=== PATIENT | female | born 1945 | race Asian ===

== ENCOUNTER → 2021-04-07 09:05 | Outpatient (CLI) | payer OTHER, SELFPAY ==
[2021-04-07 10:33] LABS: Appearance Urine UA CLEAR; Bilirubin Urine UA NEGATIVE (NEGATIVE); Color Urine UA YELLOW; Glucose Urine UA NEGATIVE (Negative); Ketones Urine UA NEGATIVE (NEGATIVE); Leukocyte Esterase Urine UA 2+ (NEGATIVE); Nitrite Urine UA NEGATIVE (Negative); Occult Blood Urine UA 2+ (Negative); Protein Urine UA TRACE (Negative); Specific Gravity Urine UA >=1.030 (1.000-1.035); Urobilinogen Urine UA 0.2 E.U./dL (0.2)
[2021-04-07 10:38] LABS: BUN Creatinine Ratio 28.8 (6-22); Blood Urea Nitrogen 23 mg/dL (7-17); Calcium 9.7 mg/dL (8.4-10.2); Carbon Dioxide 26 mmol/L (22-32); Chloride 107 mmol/L (98-107); Estimated Glomerular Filt Rate > 60.0 mL/min (>60); Glucose 138 mg/dL (80-110); HEMOLYSIS 25 (0-50); Potassium 4.2 mmol/L (3.4-5.1); Sodium 140 mmol/L (137-145)
[2021-04-07 10:45] LABS: Bacteria Urine None Seen; Culture Indicated Urine Specimen Cultured; Mucus Urine 1+ (Negative); RBC Urine 1-5/HPF (0-5/HPF); Squamous Epithelial Cell Urine 1-5 /HPF (0-5/HPF); Transitional Epi Cells Urine 0-1/HPF (0-5/HPF); WBC Urine 1-5/HPF (0-5/HPF)
[2021-04-07 11:11] LABS: Creatinine Urine Random 237.7 mg/dL
[2021-04-07 11:14] LABS: Microalbumi Creatinin Ratio Ur 17.6 ug/mg CR (<30); Microalbumin Urine Random 4.2 mg/dL (0-1.6)
== END ==
PROVIDERS: PCP Registered Nurse Diabetes Educator; Referring Provider Registered Nurse Diabetes Educator; Visit Provider Registered Nurse Diabetes Educator
DX: R94.4 Abnormal results of kidney function studies (principal)
CPT/HCPCS: 36415; 80048; 81001; 82043; 82570; 87086

== ENCOUNTER → 2021-04-13 13:42 | Outpatient (CLI) | payer OTHER, SELFPAY ==
[2021-04-13 14:01] LABS: Appearance Urine UA CLEAR; Bilirubin Urine UA NEGATIVE (NEGATIVE); Color Urine UA YELLOW; Glucose Urine UA NEGATIVE (Negative); Ketones Urine UA NEGATIVE (NEGATIVE); Leukocyte Esterase Urine UA NEGATIVE (NEGATIVE); Nitrite Urine UA NEGATIVE (Negative); Occult Blood Urine UA TRACE-INTACT (Negative); Protein Urine UA NEGATIVE (Negative); Specific Gravity Urine UA 1.015 (1.000-1.035); Urobilinogen Urine UA 0.2 E.U./dL (0.2)
[2021-04-13 14:06] LABS: Bacteria Urine None Seen; Culture Indicated Urine Cult Not Indicated; RBC Urine None Seen (0-5/HPF); Urine Comments Microscopic Normal; WBC Urine None Seen (0-5/HPF)
== END ==
PROVIDERS: PCP Registered Nurse Diabetes Educator; Referring Provider Registered Nurse Diabetes Educator; Visit Provider Registered Nurse Diabetes Educator
DX: R82.71 Bacteriuria (principal)
CPT/HCPCS: 81001

== ENCOUNTER → 2021-05-03 10:19 | Outpatient (CLI) | payer OTHER, SELFPAY ==
--- NOTE | 2021-05-03 10:21 | DI.RAD.S_ITS ---
PROCEDURE: XR KNEE LT 3V INDICATIONS: eval L knee pain TECHNIQUE: 3 views of the knee were acquired. COMPARISON: None. FINDINGS: Bones: No fractures or dislocations. No suspicious bony lesions. Mild to moderate tricompartmental osteoarthritic degenerative changes. Soft tissues: No joint effusion. No suspicious soft tissue calcifications. IMPRESSION: [id number] tricompartmental osteoarthritis. Dictated by: Marnie Dumont MD, PhD on 05/03/2021 at 17:12 Approved by: Marnie Dumont MD, PhD on 05/03/2021 at 17:13
--- NOTE | 2021-05-03 10:21 | DI.RAD.S_ITS ---
PROCEDURE: XR WRIST RT MIN 3V INDICATIONS: eval R wrist pain TECHNIQUE: 4 views of the wrist were acquired. COMPARISON: None. FINDINGS: Bones: There is an ossification adjacent to the radial styloid. No suspicious bony lesions. Degenerative radiocarpal narrowing is present. Scaphoid view: No visualized fracture. Soft tissues: No suspicious soft tissue calcifications. IMPRESSION: Calcification adjacent to the radial styloid of indeterminate age. This could represent recent avulsion injury given presence of pain and appropriate trauma. However, old injury or dystrophic calcification cannot be excluded. Dictated by: Emelyn Alves M.D. on 05/03/2021 at 14:02 Approved by: Emelyn Alves M.D. on 05/03/2021 at 14:03
== END ==
PROVIDERS: PCP Registered Nurse Diabetes Educator; Referring Provider Registered Nurse Diabetes Educator; Visit Provider Registered Nurse Diabetes Educator
DX: M25.531 Pain in right wrist (principal); M17.12 Unilateral primary osteoarthritis, left knee; M25.562 Pain in left knee
CPT/HCPCS: 73110; 73562

== ENCOUNTER → 2021-05-05 10:57 | Outpatient (CLI) | payer OTHER, SELFPAY ==
--- NOTE | 2021-05-05 10:58 | DI.MRI.S_ITS ---
PROCEDURE: MR HEAD/BRAIN WO/W CON INDICATIONS: 6 mo f/u presumed meningioma TECHNIQUE: Noncontrast axial T1 spin echo, axial T2 fast spin echo, sagittal and axial FLAIR, coronal T2 fast spin echo, axial gradient echo, axial diffusion and ADC through the brain. After the administration of contrast, axial and coronal T1 spin echo with fat saturation through the brain. COMPARISON: None. FINDINGS: These images demonstrate an midline extra-axial mass in the interhemispheric fissure which is likely dural based on the falx, and extends on both sides of the falx resulting in mild mass effect on the adjacent anterior-inferior frontal lobes. The mass measures approximately 3.5 x 3.2 centimeters maximum axial dimension and 2.9 centimeters maximum craniocaudal dimension. There is mild vasogenic edema adjacent to the mass in the right frontal lobe (series 8 images 8-10). There is mild effacement of the anterior frontal horn lateral ventricles, slightly greater on the right. No 3rd ventricular effacement or other significant mass effect/herniation. No restricted diffusion to indicate recent ischemia. The major intracranial vascular flow-related signal voids are maintained. Moderate chronic microvascular ischemic changes with mild global cerebral volume loss. Remaining midline structures are normal in configuration. Paranasal sinuses and mastoid air cells are predominantly clear. No gross orbital abnormality. IMPRESSION: Midline extra-axial mass based on the falx is consistent with meningioma. There is mass effect on the adjacent anterior-inferior frontal lobes with associated vasogenic edema in the right frontal lobe. No evidence of parenchymal or vascular invasion. Neuro surgical consultation recommended if not already performed. Dictated by: Timothy Chamberlain M.D. on 05/05/2021 at 11:19 Approved by: Timothy Chamberlain M.D. on 05/05/2021 at 11:24
== END ==
PROVIDERS: PCP Registered Nurse Diabetes Educator; Referring Provider Registered Nurse Diabetes Educator; Visit Provider Registered Nurse Diabetes Educator
DX: D32.9 Benign neoplasm of meninges, unspecified (principal); G93.6 Cerebral edema
CPT/HCPCS: 70553

== ENCOUNTER → 2021-09-02 11:02 | Outpatient (CLI) | payer OTHER, SELFPAY ==
--- NOTE | 2021-09-02 11:03 | DI.MG.S_ITS ---
BILATERAL DIGITAL SCREENING MAMMOGRAM 3D/2D WITH CAD: 09/02/2021 CLINICAL: Routine screening. Comparison is made to exams dated: 09/01/2020 mammogram, 11/13/2019 mammogram, 05/20/2019 mammogram, 05/13/2019 mammogram, and 07/03/2019 specimen - outside facility. The tissue of both breasts is predominantly fatty. Current study was also evaluated with a Computer Aided Detection (CAD) system. There are benign post operative findings in the left breast. No significant masses, calcifications, or other findings are seen in either breast. There has been no significant interval change. IMPRESSION: BENIGN There is no mammographic evidence of malignancy. A 1 year screening mammogram is recommended. This exam was interpreted at Station ID: [id number]. NOTE: For mammograms, a report in lay terms will be sent to the patient. Approximately 15% of breast malignancies will not be visualized mammographically. In the management of a palpable breast mass, a negative mammogram must not discourage biopsy of a clinically suspicious lesion. Electronically Signed By: Al Giron acr/penrad:09/02/2021 13:43:29 letter sent: Normal Exam ACR BI-RADS Category 2: Benign Finding(s) 3342F
== END ==
PROVIDERS: PCP Registered Nurse Diabetes Educator; Referring Provider Internal Medicine Hematology & Oncology; Visit Provider Internal Medicine Hematology & Oncology
DX: Z12.31 Encounter for screening mammogram for malignant neoplasm of breast (principal)
CPT/HCPCS: 77063; 77067

== ENCOUNTER → 2021-09-29 09:24 | Outpatient (CLI) | payer OTHER, SELFPAY ==
[2021-09-29 12:17] LABS: COVID19 -Nasal RAPID Negative (Negative)
== END ==
PROVIDERS: PCP Registered Nurse Diabetes Educator; Visit Provider Surgery
DX: Z20.822 Contact with and (suspected) exposure to COVID-19 (principal); Z01.812 Encounter for preprocedural laboratory examination
CPT/HCPCS: 87635; C9803

== ENCOUNTER 2021-09-30 08:58 | Day surgery (SDC) | payer OTHER, SELFPAY ==
[2021-09-30 09:16] VITALS: BMI 26.6
[2021-09-30 09:29] VITALS: BP 147/72; PULSE 57; RESP 16; TEMP 36.9; O2SAT 97
[2021-09-30] MEDS: LACTATED RINGERS 1,000 ML 84 ML IV (09:46)
--- NOTE | 2021-09-30 10:35 | PM.HP.1 ---
History of Present Illness History of Present Illness Date Patient Seen: 09/30/21 Time Patient Seen: 10:36 Chief complaint: SDC Narrative: Lesly is a 75-year-old woman who is here for a colonoscopy for colon cancer screening. She has never had a colonoscopy before. She has had at home stool testing in the past she was diagnosed with breast cancer in 2019 and underwent lumpectomy along with chemotherapy and radiation in [facility] prior to moving to [place]. Patient History Medical History Arthritis Dyslipidemia Essential hypertension History of recurrent ear infection Invasive ductal carcinoma of left breast Neuropathy Vertigo Surgical History Anesthesia History of hysterectomy (~1985) History of lumpectomy of left breast (~06/2019) Family & Social History Family History Father Tuberculosis Brother Stroke Brother Kidney disease Tobacco & Substance use: Smoking Status Former smoker alcohol intake current Substance Use Type does not use Meds Home Medications and Allergies Home Medications Medication Instructions Recorded Confirmed Type ibuprofen 800 mg tablet 800 mg PO .PRN 11/30/20 09/30/21 History calcium carbonate 600 mg calcium 600 mg DAILY 12/31/20 09/30/21 History (1,500 mg) tablet (Calcium) cholecalciferol (vitamin D3) 50 50 mcg PO DAILY 12/31/20 09/30/21 History mcg (2,000 unit) capsule (Vitamin D3) vitamin O23-wfsjvcyyl factor 110 1 cap DAILY 12/31/20 09/30/21 History mg-0.5 mg capsule atorvastatin 20 mg tablet 20 mg PO BEDTIME #90 tabs 07/09/21 09/30/21 Rx lisinopril 10 mg tablet 10 mg PO DAILY #90 tabs 07/09/21 09/30/21 Rx anastrozole 1 mg tablet 1 mg PO DAILY breast cancer #90 07/19/21 09/30/21 Rx tabs omega-3 fatty acids-vitamin E 1 cap 09/30/21 History 1,000 mg capsule Allergies Allergy/AdvReac Type Severity Reaction Status Date / Time No Known Drug Allergies Allergy Verified 09/30/21 09:08 Exam Vital Signs (past 8 hours): - 09/30/21 09:29 Temperature 98.5 F Pulse Rate 57 L Respiratory Rate 16 Blood Pressure 147/72 H Pulse Oximetry 97 Oxygen Delivery Method Room Air Oxygen Delivery Method Room Air Const General: comfortable Resp Effort & Inspection: normal respiratory effort Assessment & Plan Assessment and plan (1) Colon cancer screening: Status: Acute Plan 75-year-old woman who is here for colon cancer screening. We reviewed the risks and benefits of colonoscopy and she would like to proceed. COVID-19 COVID-19 status: Negative Result date/Date tested (Pos, Neg/Pending): 09/29/21 Time Spent With Patient Critical Care time: I spent a total of [] minutes of critical care time on this patient's care today; this time is exclusive of procedural time.
[2021-09-30] MEDS: MIDAZOLAM 5 MG/5 ML VIAL 7 MG IV (11:06)
[2021-09-30] MEDS: fentaNYL 250 MCG/5 ML INJ 175 MCG IV (11:06)
--- NOTE | 2021-09-30 11:18 | PM.OP.COLON ---
Operative Date/Time/Diagnoses Date of procedure: 09/30/21 Time of procedure: 11:18 Pre-op diagnosis: Colon cancer screening Post-op diagnosis: same Procedure & Clinicians Study performed: Colonoscopy Same procedure as scheduled: Yes Surgeon: Britton Canales Procedure Notes Procedure in detail: Surgeon: Britton Canales MD Procedure: The patient was brought to the endoscopy suite, placed in left lateral decubitus position. The patient was connected to monitoring devices. A time-out was performed. Sedation was administered. Once the patient was adequately sedated, a digital rectal exam was performed and was normal. The scope was then inserted and advanced to the cecum where the appendiceal orifice was identified and photographed. There was a small lipoma across from the ileocecal valve. The scope was then slowly withdrawn over greater than 6 minutes. The mucosa was thoroughly inspected. There were no polyps or other lesions noted. The scope was retroflexed in the rectum. There were no abnormalities other than some mild internal hemorrhoids.. The scope was straightened and removed. The patient was awakened and brought to recovery. Versed: 7 mg Fentanyl: 175 mcg EBL: 0 Findings: No polyps Scope withdrawal time: 16 Sedation minutes: 28 Post-procedure Plan for aftercare: No further colon cancer screening is necessary Disposition: PACU
[2021-09-30 11:23] VITALS: BP 141/51; PULSE 58; RESP 16; TEMP 36.2; O2SAT 98
[2021-09-30 11:25] VITALS: BP 116/65; PULSE 57; RESP 16; TEMP 36.2; O2SAT 98
[2021-09-30 11:30] VITALS: BP 125/70; PULSE 59; RESP 16; TEMP 36.4; O2SAT 100
== END 2021-09-30 12:05 | disposition home or self-care (01) ==
PROVIDERS: PCP Registered Nurse Diabetes Educator; Referring Provider Surgery; Visit Provider Surgery
PROC: 0DJD8ZZ Inspection of Lower Intestinal Tract, Via Natural or Artificial Opening Endoscopic (ICD-10-PCS; CPT 45378; principal; 2021-09-30 10:00)
DX: Z12.11 Encounter for screening for malignant neoplasm of colon (principal); D12.0 Benign neoplasm of cecum; K64.8 Other hemorrhoids
CPT/HCPCS: G0121; 99152; 99153; J2250; J3010

== ENCOUNTER → 2022-02-04 08:40 | Outpatient (CLI) | payer OTHER, SELFPAY ==
[2022-02-04 09:50] LABS: Add Manual Diff / Slide Review NO; Basophils Absolute Auto 0 /uL (0-100); Basophils Percent Auto 0.4 % (0-2); Eosinophils Absolute Auto 0 /uL (0-450); Eosinophils Percent Auto 0.4 % (2-4); Hematocrit 43.7 % (36-46); Hemoglobin 14.9 g/dL (12.0-16.0); Lymphocytes Absolute Auto 1500 /uL (1100-4500); Lymphocytes Percent Auto 23.4 % (25-40); Mean Corpuscular Hemoglobin 31.3 PG (26-34); Monocytes Absolute Auto 500 /uL (0-900); Monocytes Percent Auto 7.2 % (3-14); Neutrophils Absolute Auto 4400 /uL (1500-7000); Neutrophils Percent Auto 68.6 % (50-75); Platelet Count 192 X10^3/uL (150-400); Red Blood Cell Count 4.75 X10^6/uL (4.0-5.2); Red Cell Distribution Width 13.2 % (11.6-14.8); White Blood Cell Count 6.4 X10^3/uL (4.5-11.0)
[2022-02-04 10:05] LABS: Alanine Aminotransferase 24 IU/L (<35); Albumin 4.4 g/dL (3.5-5.0); Albumin Globulin Ratio 1.3 (1.0-2.8); Alkaline Phosphatase 113 U/L (38-126); Aspartate Aminotransferase 26 IU/L (14-36); BUN Creatinine Ratio 25.8 (6-22); Bilirubin Total 1.1 mg/dL (0.2-1.3); Blood Urea Nitrogen 24 mg/dL (7-17); Calcium 9.3 mg/dL (8.4-10.2); Carbon Dioxide 27 mmol/L (22-32); Chloride 104 mmol/L (98-107); Cholesterol 203 mg/dL (140-199); Estimated Glomerular Filt Rate > 60 mL/min (>60); Globulin 3.5 g/dL (1.7-4.1); Glucose 100 mg/dL (80-110); HDL Cholesterol 72 mg/dL (40-60); HEMOLYSIS < 15 (0-50); LDL Cholesterol Calculated 111 mg/dL (<100); Potassium 4.2 mmol/L (3.4-5.1); Sodium 140 mmol/L (137-145); Total Protein 7.9 g/dL (6.3-8.2); Triglycerides 99 mg/dL (35-150)
[2022-02-04 10:36] LABS: TSH w/ Reflex to FT4 0.99 uIU/mL (0.47-4.68)
== END ==
PROVIDERS: PCP Registered Nurse Diabetes Educator; Referring Provider Registered Nurse Diabetes Educator; Visit Provider Registered Nurse Diabetes Educator
DX: C50.912 Malignant neoplasm of unspecified site of left female breast (principal); E78.5 Hyperlipidemia, unspecified; I10 Essential (primary) hypertension
CPT/HCPCS: 36415; 80053; 80061; 84443; 85025

== ENCOUNTER → 2022-02-17 14:38 | Outpatient (CLI) | payer OTHER, SELFPAY | PROVIDERS: PCP Registered Nurse Diabetes Educator; Referring Provider Registered Nurse Diabetes Educator; Visit Provider Registered Nurse Diabetes Educator | DX: Z13.820 Encounter for screening for osteoporosis (principal); Z78.0 Asymptomatic menopausal state; Z90.710 Acquired absence of both cervix and uterus | CPT/HCPCS: 77080 ==

== ENCOUNTER → 2022-06-06 10:26 | Outpatient (CLI) | payer OTHER, SELFPAY ==
--- NOTE | 2022-06-06 10:28 | DI.MRI.S_ITS ---
PROCEDURE: MR HEAD/BRAIN WO/W CON INDICATIONS: meningioma follow up TECHNIQUE: Noncontrast axial T1 spin echo, axial T2 fast spin echo, sagittal and axial FLAIR, coronal T2 fast spin echo, axial gradient echo, axial diffusion and ADC through the brain. After the administration of contrast, axial and coronal and sagittal T1 spin echo with fat saturation through the brain. COMPARISON: [facility], MR, MR HEAD/BRAIN WO/W CON, 05/05/2021, 11:35. FINDINGS: Image quality: Excellent. CSF spaces: Basal cisterns are patent. No extra-axial fluid collections. Ventricles are normal in size and shape. Brain: Between the frontal lobes anteriorly and inferiorly, there is an extra-axial mass seen that demonstrates low signal on T2 weighted imaging and demonstrates prominent relatively uniform enhancement. This measures 3.2 x 2.4 cm in greatest axial dimension, with a craniocaudal extent 2.6 cm. No midline shift. There is cerebral volume loss for age. There is periventricular white matter chronic small vessel ischemic change. The brainstem appears normal. Diffusion-weighted images demonstrate no acute ischemic insults. No chronic ischemic insults. Normal intravascular flow voids are present. Skull and face: Calvarial marrow is normal in signal. Orbits appear normal. Sinuses: Sinuses and mastoids appear clear. IMPRESSION: There is again seen an extra-axial enhancing lesion between the frontal lobes inferiorly. This is not increased in size compared to the prior examination and is attributed to a stable meningioma. Dictated by: Crispin Landa M.D. on 06/06/2022 at 11:01 Approved by: Crispin Landa M.D. on 06/06/2022 at 11:03
== END ==
PROVIDERS: PCP Registered Nurse Diabetes Educator; Referring Provider Internal Medicine Hematology & Oncology; Visit Provider Internal Medicine Hematology & Oncology
DX: C50.912 Malignant neoplasm of unspecified site of left female breast (principal); D32.9 Benign neoplasm of meninges, unspecified
CPT/HCPCS: 70553

== ENCOUNTER → 2022-09-09 09:04 | Outpatient (CLI) | payer OTHER, SELFPAY ==
[2022-09-09 09:36] LABS: Add Manual Diff / Slide Review NO; Basophils Absolute Auto 0 /uL (0-100); Basophils Percent Auto 0.7 % (0-2); Eosinophils Absolute Auto 100 /uL (0-450); Hematocrit 42.3 % (36-46); Hemoglobin 14.2 g/dL (12.0-16.0); Lymphocytes Absolute Auto 1600 /uL (1100-4500); Mean Corpuscular HGB Conc 33.7 % (30-36); Mean Corpuscular Hemoglobin 30.9 PG (26-34); Mean Corpuscular Volume 91.6 fL (80-100); Monocytes Absolute Auto 400 /uL (0-900); Neutrophils Absolute Auto 3500 /uL (1500-7000); Neutrophils Percent Auto 62.3 % (50-75); Platelet Count 161 X10^3/uL (150-400); Red Blood Cell Count 4.62 X10^6/uL (4.0-5.2); Red Cell Distribution Width 13.5 % (11.6-14.8); White Blood Cell Count 5.7 X10^3/uL (4.5-11.0)
[2022-09-09 09:51] LABS: Alanine Aminotransferase 30 IU/L (<35); Albumin 4.3 g/dL (3.5-5.0); Albumin Globulin Ratio 1.2 (1.0-2.8); Alkaline Phosphatase 140 U/L (38-126); Aspartate Aminotransferase 40 IU/L (14-36); Bilirubin Total 0.8 mg/dL (0.2-1.3); Blood Urea Nitrogen 20 mg/dL (7-17); Calcium 9.1 mg/dL (8.4-10.2); Carbon Dioxide 25 mmol/L (22-32); Chloride 105 mmol/L (98-107); Estimated Glomerular Filt Rate > 60 mL/min (>60); Globulin 3.5 g/dL (1.7-4.1); Glucose 101 mg/dL (80-110); HEMOLYSIS 58 (0-50); Potassium 4.2 mmol/L (3.4-5.1); Sodium 139 mmol/L (137-145); Total Protein 7.8 g/dL (6.3-8.2)
[2022-09-09 09:56] LABS: Cholesterol 206 mg/dL (140-199); HDL Cholesterol 58 mg/dL (40-60); LDL Cholesterol Calculated 126 mg/dL (<100); Triglycerides 111 mg/dL (35-150)
[2022-09-09 10:23] LABS: TSH w/ Reflex to FT4 1.73 uIU/mL (0.47-4.68)
== END ==
PROVIDERS: PCP Registered Nurse Diabetes Educator; Referring Provider Internal Medicine Hematology & Oncology; Visit Provider Internal Medicine Hematology & Oncology
DX: E78.5 Hyperlipidemia, unspecified (principal); I10 Essential (primary) hypertension; C50.912 Malignant neoplasm of unspecified site of left female breast
CPT/HCPCS: 36415; 80053; 80061; 84443; 85025

== ENCOUNTER → 2022-10-10 13:07 | Outpatient (CLI) | payer OTHER, SELFPAY ==
--- NOTE | 2022-10-10 13:09 | DI.RAD.S_ITS ---
PROCEDURE: XR KNEE LT 3V INDICATIONS: LEFT KNEE PAIN TECHNIQUE: 3 views of the knee were acquired. COMPARISON: [facility], , XR KNEE LT 3V, 05/03/2021, 10:16. FINDINGS: Bones: No fractures or dislocations. No suspicious bony lesions. Moderate medial compartment joint space narrowing with small marginal osteophyte. Patellofemoral joint space narrowing noted with superior patellar enthesophyte is well Soft tissues: No joint effusion. No suspicious soft tissue calcifications. IMPRESSION: [id number] osteoarthritis Approved by: Yang Amaya M.D. on 10/10/2022 at 18:44
--- NOTE | 2022-10-10 13:09 | DI.RAD.S_ITS ---
PROCEDURE: XR KNEE RT 3V INDICATIONS: RIGHT KNEE PAIN TECHNIQUE: 3 views of the knee were acquired. COMPARISON: [facility], CR, XR KNEE LT 3V, 05/03/2021, 10:16. FINDINGS: Bones: No fractures or dislocations. No suspicious bony lesions. Moderate medial and mild lateral joint space narrowing. Moderate patellofemoral joint space narrowing with large osteophyte or is lateral supracondylar osteochondroma Soft tissues: No joint effusion. No suspicious soft tissue calcifications. IMPRESSION: Moderate degenerative osteoarthritis. Possible lateral femoral osteochondroma exostosis versus large osteophyte. Consider follow-up CT if clinically relevant Approved by: Yang Amaya M.D. on 10/10/2022 at 18:43
--- OUTSIDE RECORDS SUMMARY | 2023-03-24 14:36 | XMS_ITS | Referral Summary ---
Author Name Unknown Organization [facility] Address [address] [place] [id number] Care Team Providers Care Machine Zipper Trimmer Name Role Phone Jeet Vazquez Primary Care Provider [phone] Reason for Referral * Surgical (Routine) - Authorized Specialty Diagnoses / Procedures Referred By Niko bell Referred To Contact Orthopedic Surgery Diagnoses Pain in both knees, unspecified chronicity Stephen Castrejon PA-C [address] [place] [address] [facility] [address] [place] [phone] Referral ID Status Reason Start Date Expiration Date Visits Requested Visits Authorized [id number] Authorized Specialty Services Required 02/18/2024 6 6 Reason for Visit * Reason Comments Pain Pain * Orthopedic (Routine) - Authorized Specialty Diagnoses / Procedures Referred By Niko bell Referred To Contact Orthopedic Surgery / Orthopaedic Surgery Diagnoses Pain in right knee Pain in left knee Procedures [place] OFFICE/OUTPATIENT ESTABLISHED MOD MDM 30-39 MIN Jeet Vazquez CRNP [address] [place] [id number] [facility] [address] [place] [address] Referral ID Status Reason Start Date Expiration Date V isits Requested Visits Authorized [id number] Authorized 01/26/2023 01/27/2024 6 6 Encounter Details Date Type Department Care Team Description 02/17/2023 9:30 AM PDT Office Visit [facility] [place] [address] [place] [address] Stephen Castrejon PA-C [address] [place] [address] Pain in both knees, unspecified chronicity Allergies No known active allergiesdocumented as of this encounter (statuses as of 02/17/2023) Medications Medication Sig Dispensed Refills Start Date End Date Status atorvastatin (LIPITOR) 20 mg tablet Take 1 tablet (20 mg total) by mouth daily 0 11/16/2022 Active anastrozole (ARIMIDEX) 1 mg chemo tablet Take. 1 tablet (1 mg total) by mouth in the morning. 0 10/11/2022 Active lisinopriL (PRINIVIL) 10 mg tablet Take 1 tablet (10 mg total) by mouth daily 0 01/04/2023 Active diclofenac sodium (VOLTAREN) 1 % gel Apply 2 g topically 4 (four) times a day 20 g 0 02/17/2023 02/17/2024 Active diclofenac sodium (VOLTAREN) 1 % gel Apply 4 g topically 4 times daily 0 09/05/2022 02/17/2023 Discontinued documented as of this encounter (statuses as of 02/17/2023) Social History Tobacco Use Types Packs/Day Years Used Date Smoking Tobacco: Never Smokeless Tobacco: Never Sex and Gender Information Value Date Recorded Sex Assigned at Not on file Gender Identity Not on file Sexual Orientation Not on file Job Start Date Occupation Industry Not on file Not on file Not on file documented as of this encounter Last Filed Vital Signs Vital Sign Reading Time Taken Comments Blood Pressure 124/82 02/17/2023 9:06 AM PDT Pulse 64 02/17/2023 9:06 AM PDT Temperature - - Respiratory Rate - - Oxygen Saturation 100% 02/17/2023 9:06 AM PDT Inhaled Oxygen Concentration - - Weight 74.7 kg (164 lb 9.6 oz) 02/17/2023 9:06 A M PDT Height 162.6 cm (5' 4) 02/17/2023 9:06 AM PDT Body Mass Index 28.25 02/17/2023 9:06 AM PDT documented in this encounter Progress Notes * Liz Delgado MA - 02/17/2023 9:30 AM PDT You have osteoarthritis in your Bilateral knee. Osteoarthritis is a progressive disease - it will get worse with time. You can do things to help slow the progression by keeping a healthy body weight and staying active. Treatment for osteoarthritis includes NSAIDs (aleve, ibuprofen, advil, etc), strengthening, icing and elevating, and injection therapy. As you have tired all of the conservative treatment methods, you have chosen to move forward with surgical consult. Because of the distance you would like to be seen by the orthopedic surgeons at [facility]. Wewill send a referral for you to be seen by them but because of your insurance your should get a referral from your PCP to be seen by them as well. If you are unable to be seen by those surgeons than call our office and schedule an appointment to be seen by Dr. Alamo. We will be moving April 04, 2023! The [facility] ([facility]) is located at [address] [place] [address] next to [facility]. Day Surgery will be on the 1st floor, with X-ray on the 2nd floor, Orthopedics and Spine Surgeryon the 3rd floor. We have maps located in our martial arts instructor desk to help get you to our new location for future visits. * Stephen Castrejon PA-C - 02/17/2023 9:30 AM PDT HPI: The patient is a 77 y.o. female complaining of Bilateral right worse than left knee pain. The pain is located medial knee of both knees. Pain began in the left knee approximately 2 year(s) ago. Pain began in the right knee approximately 1 year ago but has been progressively getting worse than the left side. Patient describes the pain as constant aching pain. Trauma or injury: none Tingling, numbness or paresthesias: yes Patient reports neuropathy to her bilateral hands and feet. Snapping, popping or grinding: yes Reports occasional grinding sensation Locking or catching: no Stiffness: yes Reports stiffness after the knee swells up from activities Instability:yes Reports occasionally the right knee will give out on her Aggravated by: Pain is worse when she feels the knee give out on her and after long days of being on her feet. Previous treatments: Patient has bilateral osteoarthritis of knees. Has had cortisone injection into both knees with 2-3 weeks of relief and has had durolane injection into both knees with minimal relief of only a few days. Has tried PT, massage, and Voltaren with mild relief. Takes ibuprofen as needed for pain. Patient lives in [place] and reports that travelling here is uncomfortable and would like to be seen by the Orthopedics department at [facility]. No past medical history on file. No past surgical history on file. Current Outpatient Medications Medication Sig Dispense Refill anastrozole (ARIMIDEX) 1 mg chemo tablet Take. 1 tablet (1 mg total) by mouth in the morning. atorvastatin (LIPITOR) 20 mg tablet Take 1 tablet (20 mg total) by mouth daily lisinopriL (PRINIVIL) 10 mg tablet Take 1 tablet (10 mg total) by mouth daily diclofenac sodium (VOLTAREN) 1 % gel Apply 2 g topically 4 (four) times a day 20 g 0 No current facility-administered medications for this visit. No family history on file. Social History Socioeconomic History Marital status: Spouse name: Not on file Number of children: Not on file Years of education: Not on file Highest education level: Not on file Occupational History Not on file Tobacco Use Smoking status: Never Smokeless tobacco: Never Substance and Sexual Activity Alcohol use: Not on file Drug use: Not on file Sexual activity: Not on file Other Topics Concern Not on file Social History Narrative Not on file Social Determinants of Health Financial Resource Strain: Not on file Food Insecurity: Not on file Transportation Needs: Not on file Physical Activity: Not on file Stress: Not on file Social Connections: Not on file Intimate Partner Violence: Not on file Housing Stability: Not on file Review of Systems PHYSICAL EXAM: BP 124/82 Pulse 64 Ht 1.626 m Wt 74.7 kg SpO2 100% BMI 28.25 kg/m?? Patient is a pleasant 77 y.o. female presenting with Bilateral knee pain. Patient is in no acute distress, alert and oriented ??3. Mood and affect are appropriate. Breathing is unlabored, no accessory muscle use. Gait is antalgic, utilizing no assistive devices. Right knee: Skin in-tact, no scars or lesions present. Warm to the touch, appears well perfused. Trace effusionnoted. Patient is tender to palpation medial joint line. Crepitus -. ROM 0-120??. Calf soft, nontender. Left knee: Skin in-tact, no scars or lesions present. Warm to the touch, appears well perfused. Trace effusionnoted. Patient is non-tender to palpation. Crepitus +. ROM 0-120??. Calf soft, nontender. Special tests: R L MCL laxity: - - LCL laxity: - - Posterior drawer: - - Anterior drawer: - - Gabi: [- - Sensation intact distally to light touch. Dorsalis pedis palpable, regular rate and rhythm. IMAGING: XR bilateral knees demonstrates moderate degenerative changes of bilateral knees with right worse than left. Most notably in the patellofemoral compartment and the medial compartment of the right knee. IMPRESSION: Diagnosis Plan 1. Pain in both knees, unspecified chronicity Ambulatory referral to Orthopedic Surgery PLAN: Patient Instructions You have osteoarthritis in your Bilateral knee. Osteoarthritis is a progressive disease - it will get worse with time. You can do things to help slow the progression by keeping a healthy body weight and staying active. Treatment for osteoarthritis includes NSAIDs (aleve, ibuprofen, advil, etc), strengthening, icing and elevating, and injection therapy. As you have tired all of the conservative treatment methods, you have chosen to move forward with surgical consult. Because of the distance you would like to be seen by the orthopedic surgeons at [facility]. [place] send a referral for you to be seen by them but because of your insurance your should get a referral from your PCP to be seen by them as well. If you are unable to be seen by those surgeons than call our office and schedule an appointment to be seen by Dr. Alamo. We will be moving April 04, 2023! The [facility] ([facility]) is located at [address] [place] [address] next to [facility]. Day Surgery will be on the 1st floor, with X-ray on the 2nd floor, Orthopedics and Spine Surgeryon the 3rd floor. We have maps located in our martial arts instructor desk to help get you to our new location for future visits. . documented in this encounter Plan of Treatment Scheduled Referrals Name Type Priority Associated Diagnoses Orde r Schedule Ambulatory referral to Orthopedic Surgery Outpatient Referral Routine Pain in both knees, unspecified chronicity Ordered: 02/17/2023 documented as of this encounter Visit Diagnoses Diagnosis Pain in both knees, unspecified chronicity documented in this encounter Care Teams Machine Zipper Trimmer Relationship Specialty Start Date End Date Jeet Vazquez CRNP [address] [place] [address] [address] [place] [address] PCP - General Nurse Practitioner 01/26/23 documented as of this encounter
== END ==
PROVIDERS: PCP Registered Nurse Diabetes Educator; Referring Provider Anesthesiology; Visit Provider Anesthesiology
DX: M17.0 Bilateral primary osteoarthritis of knee (principal); M25.561 Pain in right knee; M25.562 Pain in left knee
CPT/HCPCS: 73562; 99214

== ENCOUNTER → 2022-11-02 09:42 | Outpatient (CLI) | payer OTHER, SELFPAY ==
--- NOTE | 2022-11-02 09:43 | DI.CT.S_ITS ---
PROCEDURE: CT KNEE RIGHT WITHOUT CON INDICATIONS: Right knee osteochondroma TECHNIQUE: Noncontrast 1-1.5 mm axial sections acquired from the mid-patella to the proximal tibia, with coronal and sagittal reformats. COMPARISON: [facility], CR, XR KNEE RT 3V, 10/10/2022, 13:09. FINDINGS: Image quality: Excellent. Bones: No acute osseous fracture or dislocation. No osteochondroma or suspicious osseous lesion. Prior radiographic appearance is secondary to bulky marginal osteophyte formation and osseous loose bodies. Tricompartmental osteoarthrosis with severe joint space narrowing at the medial femorotibial compartment with subchondral sclerosis, subchondral cystic changes, marginal osteophyte formation, and remodeling of the medial tibial plateau articular surface. Mild to moderate joint space narrowing is seen in the lateral femorotibial compartment with marginal osteophyte formation. There is diffuse severe full-thickness joint space narrowing in the patellofemoral compartment with marginal osteophyte formation and remodeling of the articular surfaces. Suprapatellar and infrapatellar enthesophytes are present. Soft tissues: Trace joint effusion. A 12 mm ossified loose body is seen in the suprapatellar recess medially. More laterally in the suprapatellar recess, ossifications may represent fragmented patellar osteophytes versus intra-articular loose bodies. Additional smaller loose body is seen anterior to the intercondylar notch measuring 7 mm. Ossified loose body versus osteophyte posterior to the lateral femoral condyle. The articular cartilages, menisci, ligaments, and tendons are not well evaluated with standard CT. The musculature surrounding the knee is normal in bulk. Mild arterial vascular calcifications are present. IMPRESSION: 1. No osteochondroma or suspicious osseous lesion is seen. Prior radiographic appearance is secondary to osteophyte formation. 2. Tricompartmental osteoarthrosis is severe at the medial femorotibial compartment and the patellofemoral compartment. 3. Small joint effusion with multiple ossified intra-articular loose bodies. Approved by: Sebas Paredes M.D. on 11/02/2022 at 16:07
== END ==
PROVIDERS: PCP Registered Nurse Diabetes Educator; Referring Provider Anesthesiology; Visit Provider Anesthesiology
DX: D16.9 Benign neoplasm of bone and articular cartilage, unspecified (principal); M17.0 Bilateral primary osteoarthritis of knee; M25.461 Effusion, right knee
CPT/HCPCS: 73700

== ENCOUNTER → 2023-03-31 10:21 | Outpatient (CLI) | payer OTHER, SELFPAY ==
[2023-03-31 12:27] LABS: Add Manual Diff / Slide Review NO; Basophils Absolute Auto 0 /uL (0-100); Basophils Percent Auto 0.7 % (0-2); Eosinophils Absolute Auto 0 /uL (0-450); Eosinophils Percent Auto 0.7 % (2-4); Hematocrit 41.6 % (36-46); Hemoglobin 14.3 g/dL (12.0-16.0); Lymphocytes Absolute Auto 1700 /uL (1100-4500); Lymphocytes Percent Auto 31.3 % (25-40); Mean Corpuscular HGB Conc 34.3 % (30-36); Mean Corpuscular Hemoglobin 31.2 PG (26-34); Monocytes Absolute Auto 300 /uL (0-900); Monocytes Percent Auto 6.1 % (3-14); Neutrophils Absolute Auto 3300 /uL (1500-7000); Neutrophils Percent Auto 61.2 % (50-75); Platelet Count 214 X10^3/uL (150-400); Red Blood Cell Count 4.57 X10^6/uL (4.0-5.2); Red Cell Distribution Width 12.7 % (11.6-14.8); White Blood Cell Count 5.4 X10^3/uL (4.5-11.0)
[2023-03-31 12:43] LABS: Hemoglobin A1C% w Est Avg Glu 5.9 % (4.0-6.0)
[2023-03-31 13:51] LABS: Appearance Urine UA CLEAR; Bilirubin Urine UA NEGATIVE (NEGATIVE); Color Urine UA YELLOW; Glucose Urine UA NEGATIVE (Negative); Ketones Urine UA NEGATIVE (NEGATIVE); Leukocyte Esterase Urine UA NEGATIVE (NEGATIVE); Nitrite Urine UA NEGATIVE (Negative); Occult Blood Urine UA 1+ (Negative); Protein Urine UA TRACE (Negative); Specific Gravity Urine UA >=1.030 (1.000-1.035); Urobilinogen Urine UA 0.2 E.U./dL (0.2)
[2023-03-31 13:53] LABS: Bacteria Urine None Seen; RBC Urine 1-5/HPF (0-5/HPF); Squamous Epithelial Cell Urine 1-5 /HPF (0-5/HPF); WBC Urine 1-5/HPF (0-5/HPF); pH Urine UA 5.5 (4.5-8.0)
[2023-03-31 13:54] LABS: Culture Indicated Urine Cult Not Indicated; Urine Comments Low Volume (<10mL)
[2023-03-31 15:14] LABS: Blood Urea Nitrogen 19 mg/dL (7-17); Calcium 9.6 mg/dL (8.4-10.2); Carbon Dioxide 26 mmol/L (22-32); Chloride 103 mmol/L (98-107); Estimated Glomerular Filt Rate > 60 mL/min (>60); Glucose 95 mg/dL (80-110); HEMOLYSIS < 15 (0-50); Potassium 4.8 mmol/L (3.4-5.1); Sodium 139 mmol/L (137-145)
== END ==
PROVIDERS: PCP Registered Nurse Diabetes Educator; Referring Provider Orthopaedic Surgery Foot and Ankle Surgery; Visit Provider Orthopaedic Surgery Foot and Ankle Surgery
DX: Z01.818 Encounter for other preprocedural examination (principal); Z01.812 Encounter for preprocedural laboratory examination; N39.0 Urinary tract infection, site not specified
CPT/HCPCS: 36415; 80048; 81001; 83036; 85025; 93005; 93010

== ENCOUNTER 2023-04-14 06:24 | Day surgery (SDC) | payer OTHER, SELFPAY ==
[2023-04-05 11:58] VITALS: BMI 27.8
[2023-04-14] VITALS (14 sets, daily range): BP systolic 138–193; BP diastolic 53–74; PULSE 60–91; RESP 11–20; TEMP 36.2–37.2; O2SAT 95–100; BMI 27.8
--- NOTE | 2023-04-14 06:00 | DI.RAD.S_ITS ---
PROCEDURE: XR KNEE RT 1TO2V INDICATIONS: TKA TECHNIQUE: 2 view(s) of the knee acquired. COMPARISON: [facility], CR, XR KNEE LT 3V, 10/10/2022, 13:09. FINDINGS: Bones: Patient is status post total right knee joint arthroplasty. Hardware components are in expected positions. Visualized bony structures are intact. Soft tissues: Overlying postoperative changes are noted. IMPRESSION: Expected immediate postoperative appearance, status post total right knee arthroplasty. Dictated by: Yared Moore M.D. on 04/14/2023 at 10:51 Approved by: Yared Moore M.D. on 04/14/2023 at 10:52
[2023-04-14] MEDS: LACTATED RINGERS 1,000 ML 42 ML IV ×2 (07:13→08:53)
[2023-04-14] MEDS: ACETAMINOPHEN 325 MG TABLET 975 MG PO (07:18)
[2023-04-14] MEDS: CELECOXIB 200 MG CAPSULE PO (07:18)
--- NOTE | 2023-04-14 07:22 | PM.PREOP ---
Pre-operative Note Interval Note History & Physical reviewed/Exam performed by Physician: Yes Changes to H&P: No H&P completed within 30 days and has changed as indicated here:: elevated blood pressure this morning. Reports that there was a delay in her antihypertensive refill from her mail order pharmacy has not taken it since Monday. No systemic symptoms.
--- NOTE | 2023-04-14 07:35 | P.OP_ITS ---
Operative Date/Time/Diagnoses Date of procedure: 04/14/23 Time of procedure: 08:00 Pre-op diagnosis: Right knee arthritis M17.11 Post-op diagnosis: same Procedure & Clinicians Procedure: Right total knee replacement CPT code 90903 Same procedure as scheduled: Yes Indications: The patient is a 77-year-old female with end-stage [id number] knee arthritis. The patient has a significant patellofemoral and medial knee arthritis. They have failed conservative treatment with activity modifications, injections, physical therapy and bracing. They has been indicated for total knee replacement. The risks and benefits of the procedure have been discussed with the patient even opportunity to ask questions. The risks of surgery include but are not limited to infection, malunion, nonunion, fracture, loosening, persistence of pain, damage to nerves and blood vessels, need for additional procedures, DVT, PE, cardiopulmonary complications and . The patient expressed a thorough understanding of the risks and benefits of surgery and has elected to proceed. Consent was signed in the office. During the operation the services of physician surgical supply assistant were medically indicated and necessary to provide the exposure of the operative site for the surgical procedure and to maintain the limb in a proper position to carry out the procedure safely and efficiently. Without a qualified pizza hut assistant being present this would extend the operative procedure and would have made the procedure more technically difficult to perform. The surgical supply assistant was medically necessary for the proper positioning, retraction and manipulation of the limb, proper exposure, and manipulation of the tissue for implantation implants and closure. Surgeon: Daysi Simpson Telecommunications Field Technician: Leona Alves Anesthesia Type: General, Spinal and Peripheral nerve block Operative Notes Findings: Tricompartmental knee arthritis, loose bodies. Full-thickness cartilage loss. Large osteophytes. Closure Type: primary Specimen(s): none sent Prosthetic devices, grafts, tissues, transplants, or devices: Odonnell and nephew journey 2 bCS knee cobalt chromium Femur size 4 Tibia size 3 right Poly 10 mm Patella 32 x 7.5 Estimated Blood Loss (mL): 50 Blood products transfused: none Tourniquet time (min): 88 Procedure in detail: Patient was seen in the preoperative area where the patient and site of surgery were identified in the operative knee was marked informed consent confirmed. This was the right knee. Patient received the appropriate preoperative antibiotics this was 2 g of Ancef. And other preoperative medications and was taken to the operating room placed on operating table in the supine position. Spinal anesthetic were administered. The operative extremity was then prepped and draped in the standard sterile fashion with a nonsterile tourniquet high on the thigh. Patient was placed on the green foam bolsters. A lateral post was placed at the level of the proximal thigh /trochanter area as a lateral post. Formal time-out procedure was performed confirming the patient's side and site of surgery and administration of appropriate preoperative antibiotics and implants were in the room accounted for. All were in agreement. Patient received a preoperative dose of tranexamic acid and then a 2nd dose at tourniquet release Patient was prepped and draped in the standard sterile fashion and the foot was placed into the leg bui. This was taken into high flexion and the incision was marked out over the anterior knee to the level of the medial tubercle tubercle. The Esmarch was then used for exsanguination and the tourniquet was inflated to 250 mmHg. Was made through the skin and subcutaneous tissue in high flexion this was then brought down into 30? of flexion for the medial parapatellar arthrotomy. A marker pen was used to rowan the arthrotomy site for later repair. Joint fluid was evacuated. The anterior osteophytes and soft tissues were removed. Routine medial release was initially made along the medial proximal tibia with Bovie. The patella was 1st cut using the saw sized and prepped and then subluxed throughout the case and protected. The leg was then taken into extension and the patella was everted and the patella was cut to accommodate the patellar button. This was sized to a 32 mm button for a 7.5 mm thickness to recreate the original dimensions of the patella. Poly was removed and the protector replaced and the patella was subluxed and the knee was taken back up into flexion and attention was returned to the femur. Then the rotational landmarks of Whitesides line and the trans epicondylar axis were marked on the femur with electrocautery. Then the intramedullary guide for the femur was created. The distal femoral cut was made in 6? of valgus using the intramedullary guide with the cut setting on 2+ . The ACL and PCL released. The proximal tibia was then cut using the intramedullary guide, taking 9 mm off the less involved side this was the lateral plateau. The Matty wing was used to check the slope through the guide. In extension remainders of the medial and lateral menisci were removed. The extension flexion gaps were then checked using both the flexion extension blocks. And was selected for a 9 mm poly block. Next the femur Femur was then sized and the rotation set using the posterior condyle referencing 4? of external rotation. This measured a size 4. Cut block was then placed and the anterior, posterior and chamfer cuts were then made. The posterior osteophytes and soft tissues were then removed. Then in extension the posterior capsule was injected with a mixture of 40 mL of 0.25% Marcaine and 20 mL of Exparel care to avoid excessive injection posterior laterally. The remainder of this was saved for the capsule and subcutaneous tissue and placed during cement curing. Attention was then returned to the tibia and this was prepared with the rotation set by the extramedullary guide. Lined up with the tibial crest and the 2nd toe. The tibial trial was then pinned in place and the trial femoral components were placed. Then the intercondylar notch was cut through the femoral trial to cre ate the box this was done with the distal than the proximal drill and then the box cut distally and then proximally. Next the insert was placed and the trial poly placed. This was stable in flexion and extension with a 9 mm poly and there was a 0-135 degree range of motion. The tibia was then finished with the drill and flange cuts and then this was removed. All trials were removed. The wound and bone was irrigated with pulsatile lavage. This was then dried with a sponge. The components were verified and opened and the cement was mixed. Cement was applied to the components and then to the bone then the tibia was cemented in place 1st followed by the femur then the patella. Excess cement was removed. With care looking around the back of the knee. Remainder of the injection was injected around the capsule. trial poly was placed back in the leg was placed into extension for the patellar cementing. After this was cured approximately 15 minutes later and the dilute Betadine solution was placed for at least 3 minutes in the wound this was then irrigated out. Final stability checking was completed. There was noted to be a couple mm of laxity medially after final cementing so poly was upsized for a 10 poly. Which was stable in flexion extension just a jog of medial laxity about 1 mm full range of motion 0- 135. And the final poly was placed. This was a 10 mm poly. The tourniquet was released hemostasis was achieved. Final 1g of tranexamic acid was given IV at the time of tourniquet release. The capsule was closed with 1. Ethibond suture. Subcutaneous layer was closed with 3-0 Vicryl suture. Skin was closed with a running V lock suture Stratafix Monocryl type suture and Dermabond. An Aquacel dressing was placed. An Lionel wrap was applied. Anesthetic was terminated the patient was woken from anesthesia and taken to recovery room in good condition. There no immediate complications from this procedure. The patient will be maintained on a standard total knee replacement protocol with weight-bearing as tolerated. Complications: none Post-operative Condition: stable Disposition: PACU Plan for aftercare: Home when we covered and mobilizing. Aspirin 81 mg b.i.d. for DVT prophylaxis. Follow up in 2 weeks for incision check. The PA then 6 weeks with surgeon. Commence home exercises and physical therapy with an a week. Postoperative x-rays demonstrated appropriate alignment the patient was demonstr ated active dorsiflexion plantar flexion knee flexion extension and the postoperative unit.
--- NOTE | 2023-04-14 07:47 | SUR.PREOP ---
Block start time [0735] . Monitoring initiated and maintained throughout procedure. Oxygen and medications given per anesthesiologist instructions. Patient remained stable throughout procedure, no adverse reactions noted. Block end time [0741].
[2023-04-14] MEDS: CEFAZOLIN 2 GM/100 ML PREMIX 100 ML IV ×2 (07:55→16:42)
[2023-04-14] MEDS: TRANEXAMIC ACID 1,000 MG VIAL 1000 MG INJ ×2 (08:05→09:46)
--- NOTE | 2023-04-14 08:28 | SUR.OPER ---
Supine on padded OR bed. Pillow under head, arms secured on padded armboards <90 degree abduction. Safety belt across torso. Non-operative leg padded and secured with tape over blanket over lower leg. Operative leg secured in DeMayo/Franc/Nathe positioner. Foam padded brace at thigh of operative leg.
[2023-04-14] MEDS: BUPIVACAINE 0.25% (PF) 30 ML, EPINEPHrine 0.15 MG INJ (09:28)
[2023-04-14] MEDS: BUPIVACAINE LIPOSOME 266 MG/20 ML VIAL INJ (09:29)
[2023-04-14] MEDS: LACTATED RINGERS 1,000 ML 100 ML IV (12:30)
--- NOTE | 2023-04-14 14:30 | PT.IIE ---
Current Diagnoses Unilateral primary osteoarthritis, right knee (04/14/23) Surgery Performed Operation Date: 04/14/23 07:45 Actual Procedures p Total Knee Arthroplasty(Right) - Daysi Simpson MD Surgical History (Last Reviewed 04/14/23 @ 06:49 by Rose Casillas, JENNY) Anesthesia History of hysterectomy (~1985) History of lumpectomy of left breast (~06/2019) Hx of bilateral cataract extraction Hx of colonoscopy (09/30/21) Medical History (Last Updated 04/05/23 @ 12:28 by Bing Hirsch RN) Arthritis Bilateral knee pain Bilateral primary osteoarthritis of knee Chronic knee pain Dyslipidemia Essential hypertension History of COVID-19 (12/2022) History of recurrent ear infection Hyperlipidemia Invasive ductal carcinoma of left breast Neuropathy Vertigo Physical Therapy Inpatient Evaluation/Re-Eval M1 PT/OT-IP Prior Functional Status Start: 04/14/23 16:28 Freq: NEEDED Status: Active Protocol: Document 04/14/23 14:30 AB (Rec: 04/14/23 16:42 AB [id number]) Medical Review Prior Functional Status Medical History Reviewed Yes Communication able to make needs known. Mobility and Gait pt stated that she was independent with all mobilities and ambulation without AD Activities of Daily Living and IADL's per OT note: Pt able to do ADl and IADl needs. Social History Household Members none Living Arrangements House Number of Floors (Floors) Two Floors Number of Stairs To Enter/Railing? 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 PT-IP Current Condition Start: 04/14/23 16:28 Freq: NEEDED Status: Active Protocol: Document 04/14/23 14:30 AB (Rec: 04/14/23 16:42 AB [id number]) Physical Therapy Current Condition Current Condition Evaluation Date 04/14/23 Treatment Diagnosis s/p R TKA; difficulty in walking Onset Date 04/14/23 M3 PT-IP Subjective Start: 04/14/23 16:28 Freq: NEEDED Status: Active Protocol: Document 04/14/23 14:30 AB (Rec: 04/14/23 16:42 AB [id number]) Subjective Physical Therapy Visit Type Type Initial Evaluation Visit Start Time 14:30 Visit Stop Time 15:20 Total Visit Minutes 50 Number of MATERIAL HANDLING WAREHOUSE SUPERVISOR Visits 0 Physical Therapy Visit Comments Patient Comments agreeable to do PT Therapy Pain Assessment Pain Present Pain Present Denied Pain M4 PT-IP Mobility and Gait Start: 04/14/23 16:28 Freq: NEEDED Status: Active Protocol: Document 04/14/23 14:30 AB (Rec: 04/14/23 16:42 AB [id number]) PT-Bed Mobility Assessment Supine to Sit Supine to Sit Minimal Assistance,1 Person Assistance,Bedrails Sit to Supine Sit to Supine Moderate Assistance,1 Person Assistance,Bedrails PT-Transfer Assessment Sit to and From Stand Sit to and from Stand Maximum Assistance,1 Person Assistance,2 Person Assistance ,Use of Upper Extremities Equipment Transfer Assistive Device Gait Belt,Front Wheeled Walker Orthotic/Prosthetic Devices or Brace: No Comments Mobility Comments pt supine in bed. pt stated that she will go home today. obtained PLOF and home set up information from pt. BP in supine: 144/65 completed supine to sit min A and cues. able to sit on EOB SBA without c/o dizziness. pt with decrease quads strength from MMT. NAC in room to assist. pt completed sit to stand max A x 1-2 and max cues. pt initially not putting weight on RLE and knee flexion. assisted pt with R knee stabilization and cued for quads activation. pt able to ambulate ~ 20 ft in room using FWW max A x 1-2 and max cues with (+) knee buckling and increase posterior trunk lean with pt compensating to be able to keep knee straight. pt needing max A x 2 to total A x 2 towards end of ambulation with back up onto the bed with uncontrolled R knee buckling despite max A x 2 and stabilization provided. pt assisted to EOB. pt completed sit to supine mod A and max cues. positioned pt on the chair. call light and table placed within reach. informed pt that she is not safe to go home today. Caregiver training set up for tomorrow ~ [id number] am. Gait Assessment Gait Gait Assistance Required: Maximum Assistance,Total Assistance,1 Person Assist,2 Person Assist Distance (Feet) 20 Able to Maintain Weight Bearing Status Yes During Gait Assistive Devices Assistive Device Gait Belt,Front Wheeled Walker Orthotic/Prosthetic Devices or Brace: No Gait Deviations General Gait Pattern Antalgic,Decreased Stride Length,Decreased Feet Clearance,Step-to Gait Factors Limiting Gait Function Factors Limiting Gait Function Decreased Activity Tolerance, Decreased Strength,Difficulty Following Directions,Limited Range of Motion,Pain,Poor Balance,Poor Safety Awareness PT-Balance Assessment Sitting Balance and Reactions Static Sitting Balance Ability Good Dynamic Sitting Balance Ability Fair Standing Balance and Reactions Static Standing Balance Ability Poor Dynamic Standing Balance Ability Poor Device Used FWW M5 PT-IP Objective Assessments Start: 04/14/23 16:28 Freq: NEEDED Status: Active Protocol: Document 04/14/23 14:30 AB (Rec: 04/14/23 16:42 AB [id number]) Orientation Orientation/Cognition Level of Alertness Alert Orientation Name,Place,Situation Language Function Ability No Deficits Noted Safety Awareness Decreased Safety Awareness Memory Description No Deficits Noted Gross Range of Motion Lower Extremity ROM Assessment Within Functional Limits Impairments PROM: R knee flexion: ~ 90 deg R knee extension: ~ 10 deg less to 0 Strength Lower Extremity Strength Assessment Right Impaired Hip 3+/5 Knee 3-/5 Ankle 4/5 Muscle Tone Muscle Tone WNL Yes M6 PT-IP Treatment Start: 04/14/23 16:28 Freq: NEEDED Status: Active Protocol: Document 04/14/23 14:30 AB (Rec: 04/14/23 16:42 AB [id number]) Physical Therapy Treatment Exercises Exercises Heel Slides Education Education Provided Precautions,Weight Bearing Status,Safety M7 PT-IP Assessment and Plan Start: 04/14/23 16:28 Freq: NEEDED Status: Active Protocol: Document 04/14/23 14:30 AB (Rec: 04/14/23 16:42 AB [id number]) PT Summary Assessment and Plan Potential Rehabilitation Potential Fair Status of Condition at Evaluation Evolving Summary Impairments Pain,ROM,Strength,Balance, Coordination,Sensation,Tone, Cognition,Bed Mobility, Transfers,Gait,Activity Tolerance Assessment Summary pt is a 77 y/o F s/p R TKA POD0. pt requiring max A x 2 to total A x 2 for ambulation using FWW with (+) R knee buckling and unable to control during backing up on to the EOB despite max A x 2 provided and stabilization. d /c plan depending on progress. caregiver training set up for tomorrow at ~[id number] am tomorrow. will continue to assess. Goals Bed Mobility Goal Independent Transfer Goal Independent,Front Wheeled Walker Gait Goal Independent,Front Wheel Walker Gait Distance 300 Other Goals improve transfers and ambulation using LRAD >300 ft mod I up/down 1 step using FWW SBA Days to Meet Goals 5 Frequency of Treatment Frequency Of Treatment Twice a Day Treatment Plan Physical Therapy Treatment Plan Bed Mobility Training,Transfer Training,Gait Training, Therapeutic Exercise,Balance Retraining,Post Op Education, Discharge Planning,Hot or Cold Pack,Neuromuscular Re-ed, Coordination Retraining,Manual Therapy Weight Bearing Status Weight Bearing Status Weight Bear as Tolerated Allowed Weight Bearing Amount (enter % RLE WBAT or #) (%) Recommendations To Nursing Amount of Assist Needed PT/OT Assist Only Discharge Recommendations PT Discharge Recommendations Home with 14/11 Assist Available,Home Health,SNF Rehab,Home vs SNF Transportation Needs at Discharge Private Vehicle,Wheelchair/ Cabulance
--- NOTE | 2023-04-14 14:37 | OT.IP.EVAL ---
Current Diagnoses Unilateral primary osteoarthritis, right knee (04/14/23) Surgery Performed Operation Date: 04/14/23 07:45 Actual Procedures p Total Knee Arthroplasty(Right) - Daysi Simpson MD Past Medical History (Last Updated 04/05/23 @ 12:28 by Bing Hirsch, JENNY) Arthritis Bilateral knee pain Bilateral primary osteoarthritis of knee Chronic knee pain Dyslipidemia Essential hypertension History of COVID-19 (12/2022) History of recurrent ear infection Hyperlipidemia Invasive ductal carcinoma of left breast Neuropathy Vertigo Surgical History (Last Reviewed 04/14/23 @ 06:49 by Rose Casillas RN) Anesthesia History of hysterectomy (~1985) History of lumpectomy of left breast (~06/2019) Hx of bilateral cataract extraction Hx of colonoscopy (09/30/21) Occupational Therapy Inpatient Evaluation/Re-Eval M1 PT/OT-IP Prior Functional Status Start: 04/14/23 14:37 Freq: NEEDED Status: Active Protocol: Document 04/14/23 14:37 [facility] (Rec: 04/14/23 14:59 [facility] [id number]) Medical Review Prior Functional Status Communication Independent Mobility and Gait Per pt only able to stand for one hour at a time and could only walk less than one mile as prior pt could walk a few miles. Activities of Daily Living and IADL's Pt able to do ADl and IADl needs. Social History Household Members none Living Arrangements House Number of Floors (Floors) Two Floors Number of Stairs To Enter/Railing? Pt states can enter the house from the upper level and only have to walk less than 10 ft to get to the one step to enter the house. Home Environment Standard Height Toilet,Walk in Shower,Bidet Home Equipment Front Wheel Walker,Straight Cane,Hand Held Shower,Long Handled Shoe Horn,Grab Bars Near Toilet Additional Social History Comment Pt states her son to stay and assist her at home. M2 OT-IP Current Condition Start: 04/14/23 14:37 Freq: Status: Active Protocol: Document 04/14/23 14:37 [facility] (Rec: 04/14/23 14:59 [facility] [id number]) Occupational Therapy Current Condition Current Condition Evaluation Date 04/14/23 Treatment Diagnosis S/P R TKA Diagnosis Onset Date 04/14/23 Weight Bearing Status Weight Bearing Status Weight Bear as Tolerated M3 OT- IP Subjective and Pain Start: 04/14/23 14:37 Freq: Status: Active Protocol: Document 04/14/23 14:37 [facility] (Rec: 04/14/23 14:59 [facility] [id number]) OT- Subjective Occupational Therapy Visit Type Type Initial Evaluation Visit Start Time 14:10 Visit Stop Time 14:37 Total Visit Minutes 27 Occupational Therapy Visit Comments Patient Comments Pt agreed to get up. Patient/Caregiver Goals To go home. OT Pain Assessment Pain When Pain Assessed At Rest Pain Present Pain Present Denied Pain M4 OT- IP ADL's Start: 04/14/23 14:37 Freq: Status: Active Protocol: Document 04/14/23 14:37 [facility] (Rec: 04/14/23 14:59 [facility] [id number]) OT [id number] Comments OT Self-Feeding Comments Not at meal time. OT ADL-Grooming Comments OT Grooming Comments Not performed. No issue anticipated. OT ADL-Oral Care Comments Oral Care Comments Not perform, no issues anticipated. OT ADL-Dressing General Eval Lower Body Dressing Ability Maximum Assistance Comments OT Dressing Comments At this time pt having difficulty to move her RLE and will need assist for LB dressing needs. OT ADL-Toileting Comments OT Toileting Comments Pt not having to go at this time. OT ADL-Bathing Comments OT Bathing Comments Suggested that pt would benefit from a shower chair at home to use. M5 OT- IP IADL's Start: 04/14/23 14:37 Freq: Status: Active Protocol: Document 04/14/23 14:37 [facility] (Rec: 04/14/23 14:59 [facility] [id number]) OT-Instrumental Activities of Daily Living Deficits IADL Deficits Identified Deficits Home Safety Awareness Awareness of Need for Assistance at Home Good Awareness Ability to Problem Solve Emergency Able to Problem Solve Situations Home Safety Comments Pt has supportive son to be able to assist her at home. Medication Management Medication Management No Deficits Identified Money Management Money Management No Deficits Identified Meal Preparation Meal Preparation Caregiver Provides Assist End Polisher End Polisher Caregiver Provides Assist M6 OT- IP Functional Cognition Start: 04/14/23 14:37 Freq: Status: Active Protocol: Document 04/14/23 14:37 [facility] (Rec: 04/14/23 14:59 [facility] [id number]) Cognitive Factors Limiting Selfcare Function Cognitive Ability Level of Alertness Alert Patient Orientation Name,Age,Birthday,Month,Date, Year,Day of Week,Place, Situation Attention Span Ability Capable of Focused Attention, Capable of Sustained Attention Ability to Follow Commands Able to Follow One Step Commands Cognitive Comments Cognitive Assessment Comments Pt is intact but a little groggy as just coming up from surgery less than 2 hours ago. OT- Vision and Hearing OT- Hearing Assessment OT- Hearing Assessment WFL OT- Vision Assessment Visual Acuity Glasses For Reading M7 OT- IP Mobility and Balance Start: 04/14/23 14:37 Freq: Status: Active Protocol: Document 04/14/23 14:37 [facility] (Rec: 04/14/23 14:59 [facility] [id number]) OT- Bed Mobility Assessment Supine to Sit Supine to Sit Assist Minimal Assistance Sit to Supine Sit to Supine Assist Minimal Assistance OT-Transfer Assessment Sit to and From Stand Sit to and from Stand Moderate Assistance,Maximum Assistance,1 Person Assistance Technique Transfer Destination Bed Transfer Technique Devices Transfer Assistive Devices Gait Belt,Front Wheeled Walker Comments Mobility Comments REGGIE to assist to get her RLE to the edge of the bed and assist to help get her leg back into bed. MOD/MAXAx1 to stand as right knee buckling and heavy use of BUE on the FWW to stand. Pt not able to take any steps at this time and got the pt back in bed. OT- Balance Assessment Sitting Balance and Reactions Static Sitting Balance Ability Good Dynamic Sitting Balance Ability Good Standing Balance and Reactions Static Standing Balance Ability Poor Dynamic Standing Balance Ability Poor M8 OT- IP Objective Assessments Start: 04/14/23 14:37 Freq: Status: Active Protocol: Document 04/14/23 14:37 [facility] (Rec: 04/14/23 14:59 [facility] [id number]) OT Gross Range of Motion Upper Extremity Range of Motion Assessment Within Functional Limits OT Strength Upper Extremity Strength Assessment Within Functional Limits M9 OT- IP Assessment and Plan Start: 04/14/23 14:37 Freq: Status: Active Protocol: Document 04/14/23 14:37 [facility] (Rec: 04/14/23 14:59 [facility] [id number]) OT Summary Assessment and Plan Potential Rehabilitation Potential Excellent Analytic Complexity at Evaluation Low Summary OT Impairments Strength,Balance,Functional Mobility,Grooming,Dressing, Toileting,Bathing,Toilet Transfers,Shower Transfers Progress Towards Goals Progressing Toward Goals,Slow Progress due to Medical Issues Assessment Summary Pt low complexity and just coming up from surgery less than 2 hours. Pt's main barriers are not able to use RLE to stand yet and buckling on attmept to stand at this time. Pt educated on LB dressing equipment and would benefit from a shower chair. As pt recover and when medically stable to go home with her son to assist and attend outpt PT. Goals Grooming Goal Independent Dressing Goal Independent Toileting Goal Independent Bathing Goal Independent Toilet Transfer Goal Independent Shower Transfer Goal Independent Days to Meet Goals 7 Frequency of Treatment Frequency Of Treatment Once a Day Treatment Plan OT Treatment Plan ADL Training,Functional Mobility,Patient/Family Education,Discharge Planning Discharge Recommendations OT Discharge Recommendations Home with 14/11 Assist Available,Outpatient PT Transportation Needs at Discharge Private Vehicle
--- NOTE | 2023-04-14 18:04 | PM.PNPO.1 ---
Subjective Subjective Date Patient Seen: 04/14/23 Time Patient Seen: 18:04 Interval history: Postop day 0 right total knee arthroplasty. Saw the patient this evening just before 6:00 p.m.. She was resting in bed speaking with the nurses. Stated she had no pain. Demonstrated a straight leg raise for me. She flexed her knee up to 90? and extended it out straight repeatedly. She demonstrated intact dorsiflexion plantar flexion. Per report she would failed physical therapy earlier in the day with the unsteadiness when walking backwards with a walker. The patient states she did not have any trouble walking forwards. Patient expressed desire to go home. With nursing assistance we got the patient up at bedside with a walker she demonstrated walking forward with a walker and she was able to walk backwards with the walker to the bedside chair without difficulty. Patient states she thinks she has it down now and last time she tried to step back with her bad leg but she tried out her good leg this time and did not have any problems. Patient has demonstrated appropriate awareness for discharge home. Nurses and nursing assistance at the bedside noted improvement from when they last had her up to the commode with the maneuvers. We will discharge home. Patient will follow up as scheduled in 2 weeks [facility] --the patient has already filled her outpatient medications. -she will have aspirin 81 mg b.i.d. for DVT prophylaxis. Exam Vital Signs (past 8 hours): - 04/14/23 10:15 04/14/23 10:20 04/14/23 10:25 Temperature 97.5 F L Pulse Rate 81 70 72 Respiratory Rate 19 14 20 Blood Pressure 147/53 H 157/67 H 154/59 H Pulse Oximetry 97 100 100 Oxygen Delivery Method Simple Mask Room Air Room Air Oxygen Flow Rate 6 04/14/23 10:30 04/14/23 10:44 04/14/23 11:00 Temperature 97.8 F Pulse Rate 69 73 83 Respiratory Rate 20 15 15 Blood Pressure 160/74 H 170/74 H 167/69 H Pulse Oximetry 99 96 100 Oxygen Delivery Method Nasal Cannula Room Air Nasal Cannula Oxygen Flow Rate 2 2 04/14/23 11:15 04/14/23 11:45 04/14/23 12:15 Temperature 98.9 F 98.3 F Pulse Rate 75 80 88 Respiratory Rate 15 15 15 Blood Pressure 149/65 H 146/63 H 150/68 H Pulse Oximetry 96 98 95 Oxygen Delivery Method Room Air Room Air Room Air Oxygen Flow Rate 04/14/23 12:25 04/14/23 13:48 04/14/23 15:13 Temperature 98.1 F 98.4 F 98 F Pulse Rate 83 91 H 88 Respiratory Rate 16 20 16 Blood Pressure 164/69 H 141/63 H 138/68 Pulse Oximetry 95 98 98 Oxygen Delivery Method Oxygen Flow Rate 0 Oxygen Delivery Method Room Air Oxygen Flow Rate 0 PFSH Medical History (Updated 04/05/23 @ 12:28 by Bing Hirsch RN) History of COVID-19 (12/2022) Chronic knee pain Hyperlipidemia Bilateral knee pain Bilateral primary osteoarthritis of knee Neuropathy Arthritis Vertigo History of recurrent ear infection Essential hypertension Dyslipidemia Invasive ductal carcinoma of left breast Surgical History Hx of bilateral cataract extraction Hx of colonoscopy (09/30/21) Anesthesia History of lumpectomy of left breast (~06/2019) History of hysterectomy (~1985) Family History Father Tuberculosis Brother Stroke Brother Kidney disease Social History household members: none Smoking Status: Former smoker alcohol intake: current substance use type: does not use Assessment & Plan Post-op Postoperative Procedures: Procedures Operation Date: 04/14/23 07:45 Actual Procedure Side Surgeon p Total Knee Arthroplasty Right Daysi Simpson MD Quality VTE Deep Vein Thrombosis/Pulmonary Embolism Present on Admission: No
--- NOTE | 2023-04-14 18:07 | P.DS_ITS ---
History of Present Illness History of Present Illness Date Patient Seen: 04/14/23 Date of Onset of Symptoms: 04/14/23 Chief complaint: Right TKA Narrative: Patient is a 77-year-old female that presented for right total knee arthroplasty for right knee arthritis. She initially had some difficulties with physical therapy particularly walking backwards with a walker. The time this surgeon saw evening she was able to get up and demonstrate backing up with a walker from the bed to the bedside chair without difficulty. The patient's pain was controlled and she desired discharge home. Postop day 0 right total knee arthroplasty. Discharge Providers Provider Date of admission: 04/14/2023 Discharge Date: 04/14/23 Primary care physician: JACKIE Blackburn Consults: 04/14/23 12:25 Consult to Discharge Planning Routine Comment: Consult to Occupational Therapy Evaluate & Treat Comment: Physician Instructions: Evaluate and treat Consult to Physical Therapy Evaluate & Treat Comment: Physician Instructions: postop TKA protocol Discharge provider: Daysi Simpson MD Summary Hospital Course Discharge Diagnosis: Right knee arthritis Hospital Course: Patient went up to the outpatient with bed unit postoperatively from her right total knee arthroplasty. As her spinal wore off she worked with physical therapy and nursing. She was noted initially to have some difficulty going backwards with the walker per the patient and nursing report. Physical therapy notes difficulty and maximum assist with this. Surgicel the patient has just before 6:00 p.m.. Patient was speaking with nurses and nursing assistance. Noted she had 0 pain. She demonstrated straight leg raise and repeated knee flexion to 90. She moved without difficulty to the edge of the bed stood up with a walker demonstrated forward walking walker without difficulty and then demonstrated walking backwards with a walker to sit at bedside chair. Nurses and internal medicine physician assistant in the room noted this was a significant improvement from what they soft when she was last up a couple hours previous. The patient was comfortable and desire to go home. She states she lives closed and would like to go sleep in her own bed or recliner chair. Discharge orders will be entered. Status at Discharge Cognitive/behavioral status at discharge: oriented Functional status at discharge: uses cane/walker Overall status at discharge: patient is progressing back to baseline Time Spent with Patient Time spent: Less than 30 minutes Exam Vital Signs (past 8 hours): - 04/14/23 10:15 04/14/23 10:20 04/14/23 10:25 Temperature 97.5 F L Pulse Rate 81 70 72 Respiratory Rate 19 14 20 Blood Pressure 147/53 H 157/67 H 154/59 H Pulse Oximetry 97 100 100 Oxygen Delivery Method Simple Mask Room Air Room Air Oxygen Flow Rate 6 04/14/23 10:30 04/14/23 10:44 04/14/23 11:00 Temperature 97.8 F Pulse Rate 69 73 83 Respiratory Rate 20 15 15 Blood Pressure 160/74 H 170/74 H 167/69 H Pulse Oximetry 99 96 100 Oxygen Delivery Method Nasal Cannula Room Air Nasal Cannula Oxygen Flow Rate 2 2 04/14/23 11:15 04/14/23 11:45 04/14/23 12:15 Temperature 98.9 F 98.3 F Pulse Rate 75 80 88 Respiratory Rate 15 15 15 Blood Pressure 149/65 H 146/63 H 150/68 H Pulse Oximetry 96 98 95 Oxygen Delivery Method Room Air Room Air Room Air Oxygen Flow Rate 04/14/23 12:25 04/14/23 13:48 04/14/23 15:13 Temperature 98.1 F 98.4 F 98 F Pulse Rate 83 91 H 88 Respiratory Rate 16 20 16 Blood Pressure 164/69 H 141/63 H 138/68 Pulse Oximetry 95 98 98 Oxygen Delivery Method Oxygen Flow Rate 0 Oxygen Delivery Method Room Air Oxygen Flow Rate 0 Narrative Exam Narrative: Alert oriented no acute distress sitting in bed tearful denies pain breathing unlabored on room air Right lower extremity with Lionel wrap and dressing in place. Demonstrates straight leg raise. Demonstrates flexion to 90? more than this somewhat limited due to the Lionel wrap. Demonstrates dorsiflexion and plantar flexion. Moved to the bed stands up with a walker walks forward and backwards with a walker and sits at the bedside chair without difficulty. Shows purposeful and appropriately cautious movements. No pain behaviors. [facility] Medical History History of COVID-19 (12/2022) Chronic knee pain Hyperlipidemia Bilateral knee pain Bilateral primary osteoarthritis of knee Neuropathy Arthritis Vertigo History of recurrent ear infection Essential hypertension Dyslipidemia Invasive ductal carcinoma of left breast Surgical History Hx of bilateral cataract extraction Hx of colonoscopy (09/30/21) Anesthesia History of lumpectomy of left breast (~06/2019) History of hysterectomy (~1985) Family History Father Tuberculosis Brother Stroke Brother Kidney disease Social History household members: none Smoking Status: Former smoker alcohol intake: current substance use type: does not use Discharge Assessment & Plan Assessment and Plan Assessment: Right knee arthritis status post right total knee arthroplasty postop day 0--patient's pain is controlled and she demonstrates appropriate mobilization for discharge home. She will have outpatient physical therapy starting next week. Plan of Treatment: Weightbear as tolerated using the walker and assistive devices. Pain control. Medications provided from clinic are oxycodone 5 mg tablets 1-2 tablets per oral route every 4 hours as needed for pain. Take the minimum amount required. Ondansetron 4 mg up to every 8 hours for nausea. Aspirin 81 mg b.i.d. for DVT prophylaxis. She may also take ibuprofen maximum dose 800 mg 3 times a day for maximum of 2400 mg in a 24 hour period. And Tylenol 500 mg 6 times a day for maximum 3000 mg in a 24 hour period. Discharge Plan Discharge Plan Patient Disposition: Home Nursing Discharge Comment: last ibuprofen 9:45am. last tylenol 7:18am. Discharge orders & Medications Discharge Orders: Discharge (Order); Ordered 04/14/23 Ordered By: Daysi Simpson Prescriptions: Continued atorvastatin 20 mg tablet 20 mg PO BEDTIME Qty: 90 1RF ibuprofen 800 mg tablet 800 mg PO .PRN PRN (Reason: Pain) lisinopril 10 mg tablet 10 mg PO DAILY Qty: 90 3RF calcium carbonate [Calcium 600] 600 mg calcium (1,500 mg) Tablet 600 mg DAILY cholecalciferol (vitamin D3) [Vitamin D3] 50 mcg (2,000 unit) Capsule 50 mcg PO DAILY anastrozole 1 mg Tablet 1 mg PO DAILY Qty: 90 3RF Follow up/Referrals: Daysi Simpson MD [Physician] - 2 Weeks Jeet Vazquez ARNP [Primary Care Provider] - Diet/Activity/Treatments Diet: Diet as Tolerated Activity: Weightbear as tolerated. Use walker for balance. Knee range of motion encouraged. Cold/Heat Therapy: Ice 20 minutes/hour while awake. Other treatments: Patient received her postoperative medications from clinic previously these are prescriptions for oxycodone, Zofran and will take baby aspirin 81 mg b.i.d. for 6 weeks postop. Total knee arthroplasty Dressing/Wound care: -Remove the Lionel wrap 48 hours after surgery. -Keep Aquacell dressing in place until postoperative follow-up office visit. -you may see some drainage on the bandage, this is ok. If it is leaking or saturated, then the dressing can be changed to clean gauze or a clean surgical dressing from a pharmacy or reinforced with additional gauze and paper tape or dressings over the top. Otherwise, just keep dressing in place until follow up. -Okay to shower. Keep wound out of direct water stream. No soaking or submerging until all the scabs fall off (approximately 6 weeks). -Please call the office if dressing becomes significantly wet, soiled, or saturated. Activities: -Weight-bearing as tolerated. Use front wheeled walker, and progress to cane when safe. -Continue with home exercises as directed by your physical therapist. -Elevate ?toes above the nose if you have significant swelling in your lower leg. (A wedge pillow is easiest.) -Ice your incision as needed for pain/inflammation/swelling. Protect your skin with a folded pillowcase. Follow-up: -Follow-up with your surgeon or PA in the office in 10-14 days after surgery. -Follow-up with your surgeon 6 weeks postoperatively. Call the office if you have chest pain, shortness of breath, significant swelling that will not resolve with elevating, fever over 101?, significantly worsening pain. [facility]: [phone] You have been discharged with medications. These have already been sent to your pharmacy. Pain include pain medications: Oxycodone take 5 mg orally every 4 hours as needed for pain. If your pain is more severe you may take up to 2 or a maximum 3 pills (15 mg) every 4 hours for pain. Take the smallest dose necessary. Narcotic medication can make you feel constipated. You can get [id number]-[id number] stool softener such as docusate sodium-Colace at a pharmacy to help with this. You also have prescriptions for ibuprofen 800 mg take this 3 times a day for least the 1st 10 days after surgery to help with pain control. And acetaminophen (Tylenol) take 500-1000 mg 3 times a day for pain control. You also have a prescription for Zofran (ondansetron) this is a strong anti nausea medication that can be taken up to every 8 hours as needed for nausea Additionally will take a baby aspirin 81 mg twice a day (morning and night) to help prevent blood clots Skin/Wound/Dressing Care Report to your healthcare provider any signs of infection, such as:: chills, fever, night sweats, increased pain, unusual drainage and unusual redness Visit Report/Discharge Packet Instructions: DI for Knee Replacement, DI for Prescription Opioid Use Stand Alone Forms: Patient Portal/API, Surgery Discharge Discharge Data Primary Care Provider: Jeet Vazquez Attending Provider: Daysi Simpson VTE Deep Vein Thrombosis/Pulmonary Embolism Present on Admission: No
== END 2023-04-14 19:38 | disposition home or self-care (01) ==
LOC: OR 07:26 → AC 10:06
PROVIDERS: PCP Registered Nurse Diabetes Educator; Referring Provider Orthopaedic Surgery Foot and Ankle Surgery; Visit Provider Orthopaedic Surgery Foot and Ankle Surgery
PROC: 0SRC0JZ Replacement of Right Knee Joint with Synthetic Substitute, Open Approach (ICD-10-PCS; CPT 27447; principal; 2023-04-14 07:45)
DX: M17.11 Unilateral primary osteoarthritis, right knee (principal); G89.18 Other acute postprocedural pain; M25.761 Osteophyte, right knee; M23.41 Loose body in knee, right knee
CPT/HCPCS: 27447; 64450; 73560; 97163; 97165; 97530; C1776; C9290; J0171; J0690; J1100; J1885; J2405; J2704

== ENCOUNTER → 2023-04-25 15:35 | Outpatient (CLI) | payer OTHER, SELFPAY ==
[2023-04-14 12:27] VITALS: BMI 27.8
--- NOTE | 2023-04-25 15:37 | DI.US.S_ITS ---
PROCEDURE: US PERIPH VENOUS LOW EXTREM RT INDICATIONS: RIGHT LEG SWELLING TECHNIQUE: Real-time imaging, as well as color and pulse Doppler interrogation, were performed of the lower extremity deep veins from the inguinal ligament to the popliteal fossa, with documentation of the visualized calf veins. COMPARISON: None. FINDINGS: The common femoral, femoral, popliteal, and the visualized calf veins are normally compressible, and free of intraluminal thrombus. Color and pulse Doppler demonstrate normal phasic intraluminal flow. There is normal augmentation response to distal compression maneuver. The upper thigh greater saphenous vein and saphenofemoral junction are patent. IMPRESSION: No findings of right lower extremity deep venous thrombosis. Dictated by: Yared Moore M.D. on 04/25/2023 at 18:35 Approved by: Yared Moore M.D. on 04/25/2023 at 18:36
== END ==
PROVIDERS: PCP Registered Nurse Diabetes Educator; Referring Provider Orthopaedic Surgery Foot and Ankle Surgery; Visit Provider Orthopaedic Surgery Foot and Ankle Surgery
DX: M79.89 Other specified soft tissue disorders (principal)
CPT/HCPCS: 93971

== ENCOUNTER 2023-07-12 07:20 | Day surgery (SDC) | payer OTHER, SELFPAY ==
[2023-04-14 12:27] VITALS: BMI 27.8
[2023-07-11 13:54] VITALS: BMI 27.8
[2023-07-12 07:52] VITALS: BMI 27.8
[2023-07-12 07:56] VITALS: BP 180/77; PULSE 74; RESP 24; TEMP 36.2; O2SAT 98
--- NOTE | 2023-07-12 07:59 | PM.PREOP ---
Pre-operative Note Interval Note History & Physical reviewed/Exam performed by Physician: Yes Changes to H&P: No
[2023-07-12] MEDS: ACETAMINOPHEN 325 MG TABLET 975 MG PO (08:07)
[2023-07-12] MEDS: LACTATED RINGERS 1,000 ML 42 ML IV (08:09)
--- NOTE | 2023-07-12 08:29 | P.OP_ITS ---
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 Range of motion is 2-110 degrees. Just under 3 months out from surgery. She had full range of motion intraoperatively but has arthrofibrosis. She has asymmetric decreased range of motion on the right side. She does not have any signs infection. She has plateaued with physical therapy. At this point I have diagnosed her with arthrofibrosis after total knee arthroplasty recommended manipulation under anesthesia. We discussed the objective of the procedures to break up scar tissue to get more range of motion. We discussed that patients do not keep the full range of motion obtained during the procedure but my goal is to get her in the 115-120 range. She understands the importance of exercises and physical therapy immediately after the procedure to keep the range of motion. We discussed the risks for recurrent stiffness we discussed the risks for fracture, persistent pain or skin tears. She elects to proceed. Informed consent was signed. Surgeon: Daysi Simpson Click Yes if Unassisted: Yes Anesthesia Type: General and Peripheral nerve block Operative Notes Findings: Preprocedure range of motion measured with a goniometer Extension: 2 Flexion: 110 Postprocedure range of motion measured goniometer: Extension: 1 Flexion:129 Contralateral range of motion measured with a goniometer: Extension:0 Flexion:140 Closure Type: not applicable Specimen(s): none sent Estimated Blood Loss (mL): 0 Blood products transfused: none Tourniquet time (min): 0 Procedure in detail: Patient was seen in the preoperative area site of surgery was marked and informe d consent confirmed. The patient underwent a regional block with the anesthesia team for post procedure pain control. She was then brought back to the operating room by the anesthesia team positioned supine on the operative table. This was a closed procedure. A formal time-out procedure was performed confirming the patient's side and site of procedure the presence of informed consent. No antibiotics were indicated for this closed manipulation under anesthesia. The preprocedure range of motion of the affected extremity was taken with a goniometer with the measurements given above. And the contralateral extremity range of motion was recorded. After appropriate levels of anesthesia the knee, right was gently bent with the hip flexed to 90 and the knee flexed with gentle steady pressure over proximal tibia was gentle and steady pressure for several minutes in progressive fashion. There was audible and palpable lysis of the adhesions and flexion range of motion increased. Once this was completed the knee was brought into extension and downward extension pressure was carried out in the same fashion. Additional medial lateral mobilization of the patella was completed. This was very stiff in and adhesions present and was mildly improved after completion of manipulation. Intraoperative examination stable to varus and valgus stress test at 0 45 and 90 Final measurements were taken once appropriate range of motion was obtained and these were recorded with a goniometer. The procedure ended and the patient was woken from anesthesia and taken to the recovery room in good condition. There were no immediate complications from procedure. Complications: none Post-operative Condition: stable Disposition: PACU Plan for aftercare: Weightbear as tolerated. Commence immediate range of motion. Has a physical therapy appointment later today. We will follow up in 2 weeks for [id number] check. She has been given prescriptions for oxycodone for pain control. She will continue her aspirin. She has also been given a prescription for a steroid taper to help reduce the risk of recurrent adhesions
--- NOTE | 2023-07-12 08:40 | SUR.PREOP ---
Block start time 0825 Time out 0824 . Monitoring initiated and maintained throughout procedure. Oxygen and medications given by anesthesiologist instructions. Patient remained stable throughout procedure, no adverse reactions noted. Block end time 0835.
--- NOTE | 2023-07-12 08:50 | SUR.OPER ---
Supine on padded OR bed, head on pillow, arms secured on padded arm boards at <90 degrees abduction, legs uncrossed, safety belt at thigh, tape over blanket over lower legs.
[2023-07-12 09:08] VITALS: BP 119/64; PULSE 58; RESP 23; TEMP 36.4; O2SAT 97
[2023-07-12 09:13] VITALS: BP 149/74; PULSE 57; RESP 12; TEMP 36.6; O2SAT 97
[2023-07-12 09:19] VITALS: BP 161/80; PULSE 64; RESP 15; TEMP 36.5; O2SAT 99
[2023-07-12 09:25] VITALS: BP 163/78; PULSE 62; RESP 12; TEMP 36.5; O2SAT 100
== END 2023-07-12 10:27 | disposition home or self-care (01) ==
PROVIDERS: PCP Registered Nurse Diabetes Educator; Referring Provider Orthopaedic Surgery Foot and Ankle Surgery; Visit Provider Orthopaedic Surgery Foot and Ankle Surgery
PROC: (CPT 27570; principal; 2023-07-12 08:45)
DX: T84.82XA Fibrosis due to internal orthopedic prosthetic devices, implants and grafts, initial encounter (principal); G89.18 Other acute postprocedural pain
CPT/HCPCS: 27570; 64450; J1100; J1885; J2405; J2704; J3010

== ENCOUNTER → 2023-09-11 10:29 | Outpatient (CLI) | payer OTHER, SELFPAY ==
[2023-04-14 12:27] VITALS: BMI 27.8
--- NOTE | 2023-09-11 10:30 | DI.MG.S_ITS ---
BILATERAL DIGITAL SCREENING MAMMOGRAM 3D/2D WITH CAD POST LUMPECTOMY: 09/11/2023 CLINICAL: Routine screening. Personal history of left breast cancer. Comparison is made to exams dated: 09/09/2022 mammogram, 09/02/2021 mammogram - [facility], and 09/01/2020 mammogram - outside facility. Both breasts are heterogeneously dense, which may obscure small masses (category c / 51-75% glandular tissue). Current study was also evaluated with a Computer Aided Detection (CAD) system. There are benign vascular calcifications in the right breast. There also are benign post operative findings and biopsy clip in the left breast. No significant masses, calcifications, or other findings are seen in either breast. There has been no significant interval change. IMPRESSION: BENIGN There is no mammographic evidence of malignancy. A 1 year screening mammogram is recommended. This exam was interpreted at Station ID: [id number]. NOTE: For mammograms, a report in lay terms will be sent to the patient. Approximately 15% of breast malignancies will not be visualized mammographically. In the management of a palpable breast mass, a negative mammogram must not discourage biopsy of a clinically suspicious lesion. Electronically Signed By: Alonzo jennings/darcy:09/11/2023 13:41:11 copy to: Jeet MEJIA, [facility], ph: [phone], fax: [phone] letter sent: Normal Exam ACR BI-RADS Category 2: Benign Finding(s) 3342F
[2023-09-11 11:12] LABS: Add Manual Diff / Slide Review NO; Basophils Absolute Auto 0 /uL (0-100); Basophils Percent Auto 0.6 % (0-2); Eosinophils Absolute Auto 100 /uL (0-450); Eosinophils Percent Auto 0.9 % (2-4); Hematocrit 39.3 % (36-46); Hemoglobin 13.1 g/dL (12.0-16.0); Lymphocytes Absolute Auto 2000 /uL (1100-4500); Lymphocytes Percent Auto 32.8 % (25-40); Mean Corpuscular HGB Conc 33.3 % (30-36); Mean Corpuscular Hemoglobin 29.5 PG (26-34); Mean Corpuscular Volume 88.6 fL (80-100); Monocytes Absolute Auto 500 /uL (0-900); Monocytes Percent Auto 7.6 % (3-14); Neutrophils Absolute Auto 3500 /uL (1500-7000); Neutrophils Percent Auto 58.1 % (50-75); Platelet Count 244 X10^3/uL (150-400); Red Blood Cell Count 4.43 X10^6/uL (4.0-5.2); Red Cell Distribution Width 14.3 % (11.6-14.8)
[2023-09-11 11:36] LABS: Alanine Aminotransferase 25 IU/L (<35); Albumin 4.4 g/dL (3.5-5.0); Albumin Globulin Ratio 1.5 (1.0-2.8); Alkaline Phosphatase 122 U/L (38-126); Aspartate Aminotransferase 37 IU/L (14-36); BUN Creatinine Ratio 34.2 (6-22); Bilirubin Total 0.8 mg/dL (0.2-1.3); Blood Urea Nitrogen 26 mg/dL (7-17); Calcium 9.6 mg/dL (8.4-10.2); Carbon Dioxide 32 mmol/L (22-32); Chloride 102 mmol/L (98-107); Estimated Glomerular Filt Rate > 60 mL/min (>60); Glucose 117 mg/dL (80-110); HEMOLYSIS 25 (0-50); Potassium 4.9 mmol/L (3.4-5.1); Sodium 138 mmol/L (137-145); Total Protein 7.4 g/dL (6.3-8.2)
== END ==
PROVIDERS: PCP Registered Nurse Diabetes Educator; Referring Provider Internal Medicine Hematology & Oncology; Visit Provider Internal Medicine Hematology & Oncology
DX: Z12.31 Encounter for screening mammogram for malignant neoplasm of breast (principal); C50.912 Malignant neoplasm of unspecified site of left female breast; R92.333 Mammographic heterogeneous density, bilateral breasts
CPT/HCPCS: 36415; 77063; 77067; 80053; 85025

== ENCOUNTER → 2023-09-21 08:53 | Outpatient (CLI) | payer OTHER, SELFPAY ==
[2023-04-14 12:27] VITALS: BMI 27.8
[2023-09-21 09:58] LABS: Add Manual Diff / Slide Review NO; Basophils Absolute Auto 0 /uL (0-100); Basophils Percent Auto 0.7 % (0-2); Eosinophils Absolute Auto 100 /uL (0-450); Eosinophils Percent Auto 1.2 % (2-4); Hematocrit 38.7 % (36-46); Hemoglobin 12.8 g/dL (12.0-16.0); Lymphocytes Absolute Auto 1400 /uL (1100-4500); Lymphocytes Percent Auto 26.9 % (25-40); Mean Corpuscular HGB Conc 33.1 % (30-36); Mean Corpuscular Hemoglobin 29.7 PG (26-34); Mean Corpuscular Volume 89.7 fL (80-100); Monocytes Absolute Auto 400 /uL (0-900); Monocytes Percent Auto 7.2 % (3-14); Neutrophils Absolute Auto 3400 /uL (1500-7000); Platelet Count 241 X10^3/uL (150-400); Red Blood Cell Count 4.31 X10^6/uL (4.0-5.2); Red Cell Distribution Width 14.3 % (11.6-14.8); White Blood Cell Count 5.3 X10^3/uL (4.5-11.0)
[2023-09-21 10:25] LABS: Alanine Aminotransferase 28 IU/L (<35); Albumin 4.5 g/dL (3.5-5.0); Albumin Globulin Ratio 1.6 (1.0-2.8); Alkaline Phosphatase 152 U/L (38-126); Aspartate Aminotransferase 35 IU/L (14-36); BUN Creatinine Ratio 31.3 (6-22); Bilirubin Total 0.7 mg/dL (0.2-1.3); Blood Urea Nitrogen 26 mg/dL (7-17); Calcium 9.2 mg/dL (8.4-10.2); Carbon Dioxide 27 mmol/L (22-32); Chloride 103 mmol/L (98-107); Cholesterol 198 mg/dL (140-199); Estimated Glomerular Filt Rate > 60 mL/min (>60); Globulin 2.9 g/dL (1.7-4.1); Glucose 95 mg/dL (80-110); HDL Cholesterol 72 mg/dL (40-60); HEMOLYSIS < 15 (0-50); LDL Cholesterol Calculated 102 mg/dL (<100); Potassium 4.1 mmol/L (3.4-5.1); Sodium 140 mmol/L (137-145); Total Protein 7.4 g/dL (6.3-8.2); Triglycerides 121 mg/dL (35-150)
[2023-09-21 10:52] LABS: TSH w/ Reflex to FT4 1.59 uIU/mL (0.47-4.68)
[2023-09-21 10:57] LABS: Hemoglobin A1C% w Est Avg Glu 5.8 % (4.0-6.0)
[2023-09-21 11:09] LABS: Vitamin B12 > 1000 pg/mL (239-931)
== END ==
PROVIDERS: PCP Registered Nurse Diabetes Educator; Referring Provider Registered Nurse Diabetes Educator; Visit Provider Registered Nurse Diabetes Educator
DX: E78.5 Hyperlipidemia, unspecified (principal); R73.01 Impaired fasting glucose; I10 Essential (primary) hypertension; T45.1X5A Adverse effect of antineoplastic and immunosuppressive drugs, initial encounter; G62.0 Drug-induced polyneuropathy
CPT/HCPCS: 36415; 80053; 80061; 82607; 83036; 84443; 85025

== ENCOUNTER → 2023-11-08 10:33 | Outpatient (CLI) | payer OTHER, SELFPAY ==
[2023-04-14 12:27] VITALS: BMI 27.8
[2023-11-08 12:27] LABS: Alkaline Phosphatase 152 U/L (38-126); Gamma Glutamyl Transpeptidase 21 U/L (12-43)
== END ==
PROVIDERS: PCP Registered Nurse Diabetes Educator; Referring Provider Registered Nurse Diabetes Educator; Visit Provider Registered Nurse Diabetes Educator
DX: R74.8 Abnormal levels of other serum enzymes (principal)
CPT/HCPCS: 36415; 82977; 84075

== ENCOUNTER → 2023-11-16 06:59 | Outpatient (CLI) | payer OTHER, SELFPAY ==
[2023-04-14 12:27] VITALS: BMI 27.8
--- NOTE | 2023-11-16 07:01 | DI.US.S_ITS ---
PROCEDURE: US ABDOMEN LIMITED INDICATIONS: elevated alk phos TECHNIQUE: Real-time scanning was performed of the abdominal organs, with image documentation. COMPARISON: None. FINDINGS: Liver: Liver is normal in size and homogeneous in echotexture. Gallbladder: No gallstones. No persistent filling defects are seen to indicate calculi. Biliary ducts: Intrahepatic bile ducts are non-dilated. Extrahepatic bile duct caliber measures 5 mm. Normal is 6-7 mm or less in diameter, or 10 mm or less post-cholecystectomy. Pancreas: Visualized portions of the pancreas are sonographically normal. Miscellaneous: No free abdominal fluid. IMPRESSION: No sonographic abnormality demonstrated in the upper abdomen. Dictated by: Patrick Servin M.D. on 11/16/2023 at 14:31 Approved by: Patrick Servin M.D. on 11/16/2023 at 14:40
== END ==
PROVIDERS: PCP Registered Nurse Diabetes Educator; Referring Provider Registered Nurse Diabetes Educator; Visit Provider Registered Nurse Diabetes Educator
DX: R74.8 Abnormal levels of other serum enzymes (principal)
CPT/HCPCS: 76705

== ENCOUNTER → 2024-10-05 08:15 | Outpatient (CLI) | payer MEDICARE, SELFPAY ==
[2023-04-14 12:27] VITALS: BMI 27.8
--- NOTE | 2024-10-05 08:57 | DI.MG.S_ITS ---
MM screening mammo BI: 10/05/2024. BI-RADS: 0 CLINICAL: 78-year old female for bilateral screening mammogram. No Tyrer-Cuzick risk score calculation due to the patient's personal history of breast cancer. Patient reports a history of left breast carcinoma diagnosed at age 73. Status-post left lumpectomy with radiation therapy, chemotherapy and hormonal therapy. No first-degree family history of breast cancer. Patient was diagnosed within the last 5 years. The patient had a prior left breast biopsy. PRIOR EXAMS 09/11/2023, 09/09/2022, 09/02/2021. MAMMOGRAPHY TECHNIQUE: 2D and 3D (tomosynthesis) digital mammographic views obtained, with additional images as needed for full coverage. Current study was also evaluated with a Computer Aided Detection (CAD) system. DENSITY C. The breasts are heterogeneously dense, which may obscure small masses. MAMMOGRAPHY FINDINGS Right: No suspicious mass, asymmetry, microcalcification, or other abnormality seen. No significant change from comparison. Left: MLO only, Lower, Middle depth: Asymmetry needing additional imaging evaluation. Left: Biopsy marker present on the left. Benign-appearing post-surgical changes noted on the left. IMPRESSION: Right * No evidence of malignancy. Left (Asymmetry): MLO only, Lower, Middle depth * Incomplete - asymmetry needing additional imaging evaluation. RECOMMENDATIONS Left: MLO only, Lower, Middle depth * Further evaluation with diagnostic mammography and diagnostic ultrasound. Ultrasound to be performed only if needed. OVERALL ASSESSMENT CATEGORY BI-RADS-0: Incomplete - Need Additional Imaging Evaluation. ELECTRONICALLY SIGNED: Izabel Brown M.D. on 10/07/2024 at 02:58:33 PM PT Interpreting Station ID: [id number]
[2024-10-05 10:08] LABS: Add Manual Diff / Slide Review NO; Basophils Absolute Auto 0 /uL (0-100); Basophils Percent Auto 0.6 % (0-2); Eosinophils Absolute Auto 0 /uL (0-450); Eosinophils Percent Auto 0.8 % (2-4); Hematocrit 39.4 % (36-46); Hemoglobin 13.4 g/dL (12.0-16.0); Lymphocytes Absolute Auto 1600 /uL (1100-4500); Mean Corpuscular Hemoglobin 31.2 PG (26-34); Mean Corpuscular Volume 91.5 fL (80-100); Monocytes Absolute Auto 400 /uL (0-900); Neutrophils Absolute Auto 3700 /uL (1500-7000); Neutrophils Percent Auto 63.6 % (50-75); Platelet Count 204 X10^3/uL (150-400); Red Cell Distribution Width 13.5 % (11.6-14.8); White Blood Cell Count 5.8 X10^3/uL (4.5-11.0)
[2024-10-05 10:14] LABS: Hemoglobin A1C% w Est Avg Glu 5.8 % (4.0-6.0)
[2024-10-05 10:42] LABS: Alanine Aminotransferase 23 IU/L (<35); Albumin 4.4 g/dL (3.5-5.0); Albumin Globulin Ratio 1.3 (1.0-2.8); Alkaline Phosphatase 107 U/L (38-126); Aspartate Aminotransferase 32 IU/L (14-36); BUN Creatinine Ratio 29.5 (6-22); Bilirubin Total 0.6 mg/dL (0.2-1.3); Blood Urea Nitrogen 26 mg/dL (7-17); Calcium 9.6 mg/dL (8.4-10.2); Carbon Dioxide 27 mmol/L (22-32); Chloride 107 mmol/L (98-107); Cholesterol 163 mg/dL (140-199); Estimated Glomerular Filt Rate > 60 mL/min (>60); Globulin 3.5 g/dL (1.7-4.1); Glucose 97 mg/dL (70-99); HDL Cholesterol 44 mg/dL (40-60); HEMOLYSIS < 15 (0-50); LDL Cholesterol Calculated 86 mg/dL (<100); Potassium 4.5 mmol/L (3.4-5.1); Sodium 144 mmol/L (137-145); Total Protein 7.9 g/dL (6.3-8.2); Triglycerides 166 mg/dL (35-150)
[2024-10-05 11:14] LABS: TSH w/ Reflex to FT4 1.24 uIU/mL (0.47-4.68)
== END ==
PROVIDERS: Internal Medicine Hematology & Oncology; PCP Registered Nurse Diabetes Educator; Referring Provider Registered Nurse Diabetes Educator; Visit Provider Registered Nurse Diabetes Educator
DX: Z12.31 Encounter for screening mammogram for malignant neoplasm of breast (principal); C50.912 Malignant neoplasm of unspecified site of left female breast; R92.333 Mammographic heterogeneous density, bilateral breasts; R73.01 Impaired fasting glucose; E78.5 Hyperlipidemia, unspecified; I10 Essential (primary) hypertension
CPT/HCPCS: 77063; 77067; 80053; 80061; 83036; 84443; 85025

== ENCOUNTER → 2024-11-04 10:38 | Outpatient (CLI) | payer MEDICARE, SELFPAY ==
[2023-04-14 12:27] VITALS: BMI 27.8
== END ==
PROVIDERS: PCP Registered Nurse Diabetes Educator; Visit Provider Registered Nurse Diabetes Educator
DX: R30.0 Dysuria (principal)
CPT/HCPCS: 87077; 87086; 87186

== ENCOUNTER → 2024-12-03 09:20 | Outpatient (CLI) | payer MEDICARE, SELFPAY ==
[2023-04-14 12:27] VITALS: BMI 27.8
--- NOTE | 2024-12-03 09:21 | DI.MG.S_ITS ---
US breast LT limited, MM diagnostic mammo unilat LT: 12/03/2024 BI-RADS: 1 CLINICAL: 79-year old female for left diagnostic mammogram and left diagnostic breast ultrasound that is a recall from screening on 10/05/2024. No Tyrer-Cuzick risk score calculation due to the patient's personal history of breast cancer. Patient reports a history of left breast carcinoma diagnosed at age 73. Status-post left lumpectomy with radiation therapy, chemotherapy and hormonal therapy. PRIOR EXAMS 10/05/2024, 09/11/2023, 09/09/2022, 09/02/2021. MAMMOGRAPHY TECHNIQUE: 2D and 3D (tomosynthesis) digital mammographic views obtained, with additional images as needed for full coverage. Current study was also evaluated with a Computer Aided Detection (CAD) system. ULTRASOUND TECHNIQUE Real-time munguia scale imaging of the area of clinical interest was performed with image documentation. TARGETED Left Breast Ultrasound: Real-time ultrasound exam was performed focused to area of clinical and/or imaging concern. DENSITY Left: C. The breast is heterogeneously dense, which may obscure small masses. MAMMOGRAPHY FINDINGS Left (finding-1): MLO only, Lower: The asymmetry seen on recent screening mammogram is less conspicuous with additional imaging and is consistent with superimposition of normal breast tissue. ULTRASOUND FINDINGS Left (finding-1): Lower Hemisphere. Previous report: MLO only, Lower: The area from 4 to 8 o'clock, 1 to 6 cm from the nipple was scanned. There is no sonographic correlate for the mammographic finding. No suspicious sonographic finding present. IMPRESSION: Left * No evidence of malignancy. RECOMMENDATIONS Bilateral * Annual screening mammography. COMMENTS: Findings and recommendations were conveyed to the patient during today's evaluation. OVERALL ASSESSMENT CATEGORY BI-RADS-1: Negative. The [employer] recommends annual screening mammography beginning at age 40 for women with average risk of breast cancer. ELECTRONICALLY SIGNED: Diandra Nixon M.D. on 12/03/2024 at 12:27:37 PM PT Interpreting Station ID: [id number]
== END ==
LOC: MAMMO 09:20
PROVIDERS: PCP Registered Nurse Diabetes Educator; Referring Provider Registered Nurse Diabetes Educator; Visit Provider Registered Nurse Diabetes Educator
DX: N64.89 Other specified disorders of breast (principal); R92.332 Mammographic heterogeneous density, left breast; Z85.3 Personal history of malignant neoplasm of breast
CPT/HCPCS: 76642; 77065; G0279

== ENCOUNTER 2025-03-21 14:54 | Observation (INO) | payer MEDICARE, SELFPAY ==
[2023-04-14 12:27] VITALS: BMI 27.8
[2025-03-21] VITALS (10 sets, daily range): BP systolic 141–192; BP diastolic 54–84; PULSE 59–81; RESP 16–23; TEMP 36.3–36.6; O2SAT 98–100; BMI 34.0; BMI 33.5
--- NOTE | 2025-03-21 15:41 | EKG_ITS ---
[address] [address] Test Date: 2025-03-21 Pat Name: Lesly Delgado Department: [facility] Room: Gender: Female Reading Assistant: YNES : [id number] Requested By: Order Number: [id number] Reading MD: Measurements Intervals [place] Rate: 70 P: 49 [place]: 180 QRS: 8 QRSD: 78 T: 45 QT: 424 QTc: 457 Interpretive Statements Normal sinus rhythm
--- NOTE | 2025-03-21 15:42 | ED.NEUROSD ---
HPI - Neuro Symptoms/Deficit General Chief Complaint: Neuro Symptoms/Deficit Stated Complaint: was unresponsive for 6 mins Time Seen by Provider: 03/21/25 15:30 History of Present Illness HPI Narrative: Code stroke called at 3:40 p.m.. Patient last well known 2:30 p.m. today. Brought here by her son for sudden onset of confusion right lip droop. No headache no chest pain no back pain. No numbness tingling or weakness to the limbs. No prior history of stroke. Blood pressure noted here. NIH score of 1. Fast exam shows only right lip droop. Denies any recent illness. No chest pain no shortness of breath. No urinary complaints. Related Data Home Medications ?Medication ?Instructions ?Recorded ?Confirmed calcium carbonate (Calcium 600) 600 mg PO DAILY 12/31/20 03/21/25 cholecalciferol (vitamin D3) 50 50 mcg PO DAILY 12/31/20 03/21/25 mcg (2,000 unit) capsule (Vitamin D3) dorzolamide 22.3 mg-timolol 6.8 1 drp EYE-BOTH BID 11/08/23 03/21/25 mg/mL eye drops Previous Rx's ?Medication ?Instructions ?Recorded anastrozole 1 mg tablet 1 mg PO DAILY breast cancer #90 11/08/23 tabs Disabled Parking Permit See Rx Instructions .Route 02/21/24 .COMPLEX #1 ea ibuprofen 800 mg tablet 800 mg PO Q8H PRN pain #90 tabs 11/04/24 lisinopril 40 mg tablet 40 mg PO DAILY #100 tabs 01/14/25 hydrochlorothiazide 12.5 mg tablet 12.5 mg PO DAILY #100 tabs 02/13/25 atorvastatin 20 mg tablet 20 mg PO BEDTIME #100 tabs 03/12/25 Allergies Allergy/AdvReac Type Severity Reaction Status Date / Time No Known Drug Allergies Allergy Verified 03/21/25 15:44 Review of Systems Review of Systems Narrative: GENERAL: Negative chills, fatigue, malaise, fever, sweats. HEENT: Negative sinus pain, ear pain, sore throat RESPIRATORY: Negative dyspnea, cough CARDIOVASCULAR: Negative chest pain, palpitations GASTROINTESTINAL: Negative vomiting, nausea, abdominal pain : Negative dysuria, frequency, hematuria MUSCULOSKELETAL: Negative muscle or bony pain SKIN: Negative rash, skin lesions NEUROLOGIC: Negative weakness, numbness, positive facial droop ROS Unobtainable: All systems reviewed & are unremarkable except as noted in HPI and below Patient History Medical History Other low back pain Impaired fasting blood sugar History of COVID-19 (12/2022) Chronic knee pain Hyperlipidemia Bilateral knee pain Bilateral primary osteoarthritis of knee Neuropathy Arthritis Vertigo History of recurrent ear infection Essential hypertension Dyslipidemia Invasive ductal carcinoma of left breast Surgical History History of total right knee replacement (04/14/23) Hx of bilateral cataract extraction Hx of colonoscopy (09/30/21) Anesthesia History of lumpectomy of left breast (~06/2019) History of hysterectomy (~1985) Family History Father Tuberculosis Brother Stroke Brother Kidney disease Social History household members: none Smoking Status: Never smoker alcohol intake: current substance use type: does not use alcohol intake frequency: holidays/special occasions only Exam Narrative Exam Narrative: GENERAL: in no distress, not toxic not dyspneic HEAD: Normocephalic. EYES: Pupils equal round ENT: Mucous membranes moist. NECK: Trachea midline. CARDIOVASCULAR: Regular rate and rhythm RESPIRATORY: Clear to auscultation. Breath sounds equal bilaterally. No wheezes, rales, or rhonchi. GASTROINTESTINAL: Abdomen soft, non-tender BACK: No flank tenderness. EXTREMITIES: No gross deformities. NEURO: AOx4. Clear speech, right lip droop, light touch intact bilateral face hands and legs. Negative pronator drift. Elevate each leg without drift. SKIN: Warm and dry PSYCH: Not anxious, is cooperative Initial Vital Signs Initial Vital Signs: Vital Signs Temperature 97.9 F 03/21/25 15:25 Pulse Rate 66 03/21/25 15:25 Respiratory Rate 18 03/21/25 15:25 Blood Pressure 185/78 H 03/21/25 15:25 Pulse Oximetry 100 03/21/25 15:25 Oxygen Delivery Method Room Air 03/21/25 15:25 Scores NIH Stroke Scale Level of Conciousness: Alert, keenly responsive Ask month/age: Answers both questions correctly. Open/close eyes, close hand: Performs both tasks correctly Best gaze horizontal: Normal Visual phipps: No visual loss Facial palsy: Minor paralysis, flattened nasolabial fold, asymmetry on smiling Left arm drift: No drift for full 10 sec Right arm drift: No drift for full 10 sec Left leg drift: No drift for full 5 sec Right leg drift: No drift for full 5 sec Limb ataxia: Absent Sensory on face/arms/legs: Normal, no sensory loss Best language: No aphasia, normal Dysarthria: Normal Extinction or inattention: No abnormality Total NIH Stroke scale score: 1 Course Orders Ordered: ED Orders 03/21/25 15:[address] angio head and neck Stat EKG-12 Lead Stat 03/21/25 15:44 Complete Blood Count AUTO DIFF Stat Comprehensive Metabolic Panel Stat PTT Partial Thromboplastin Mahamed Stat Prothrombin Time INR Stat Troponin & CK Cardiac Panel Stat 03/21/25 16:29 EC echo doppler complete Stat MR head/brain wo con Stat Acetaminophen (Acetaminophen 325 Mg Tablet) 650 mg PO Q6H PRN PRN Reason: Fever/Mild Pain (1-3) Aspirin (Aspirin Ec 81 Mg Tablet) 81 mg PO DAILY ELBERT Atorvastatin Calcium (Atorvastatin 20 Mg Tablet) 80 mg PO BEDTIME ELBERT Clopidogrel Bisulfate (Clopidogrel 75 Mg Tablet) 75 mg PO DAILY [facility] Last Admin: 03/21/25 17:23 Dose: 75 mg Documented By: OLEG Heparin Sodium (Porcine) (Heparin 5,000 Unit/Ml Vial) 5,000 unit SUBCUT BID ELBERT Naloxone HCl (Naloxone 0.4 Mg/Ml Vial) 0.2 mg IV Q2MIN PRN PRN Reason: Opiate Reversal Discontinued Medications Aspirin (Aspirin 81 Mg Chew Tab) 324 mg PO NOW ONE Stop: 03/21/25 16:37 Last Admin: 03/21/25 17:23 Dose: 324 mg Documented By: SB Clopidogrel Bisulfate (Clopidogrel 75 Mg Tablet) 225 mg PO NOW ONE Stop: 03/21/25 18:31 Last Admin: 03/21/25 18:58 Dose: 225 mg Documented By: MM Sodium Chloride (Normal Saline 0.9%) 250 mls @ 1,000 mls/hr IV NOW ONE Stop: 03/21/25 15:56 Last Infusion: 03/21/25 16:39 Dose: Infused Documented By: Admin: 03/21/25 16:12 Dose: 1,000 mls/hr Documented By: SB Vital Signs Vital signs: Vital Signs - 8 hr 03/21/25 15:25 03/21/25 15:32 03/21/25 15:32 Temperature 97.9 F Pulse Rate 66 67 Respiratory Rate 18 Blood Pressure 185/78 H 185/78 H Pulse Oximetry 100 100 Oxygen Delivery Method Room Air 03/21/25 16:00 03/21/25 16:23 03/21/25 16:24 Temperature Pulse Rate 68 72 Respiratory Rate Blood Pressure 174/84 H Pulse Oximetry 100 100 Oxygen Delivery Method 03/21/25 16:24 03/21/25 16:30 03/21/25 16:30 Temperature Pulse Rate 72 75 Respiratory Rate 23 Blood Pressure 192/81 H Pulse Oximetry 100 100 Oxygen Delivery Method Room Air MDM - Neuro Symptoms/Deficit Lab Data 03/21/25 15:44 03/21/25 15:44 Labs: Lab Results 03/21/25 03/21/25 Range/Units 15:42 15:44 WBC 6.6 (4.5-11.0) X10^3/uL RBC 4.11 (4.0-5.2) X10^6/uL Hgb 12.7 (12.0-16.0) g/dL Hct 37.2 (36-46) % MCV 90.5 (80-100) fL MCH 31.0 (26-34) PG MCHC 34.2 (30-36) % RDW 12.7 (11.6-14.8) % Plt Count 205 (150-400) X10^3/uL Neut % (Auto) 65.2 (50-75) % Lymph % (Auto) 25.9 (25-40) % [place] % (Auto) 6.9 (3-14) % Eos % (Auto) 1.2 L (2-4) % Baso % (Auto) 0.8 (0-2) % Neut # (Auto) 4300 (1080-9813) /uL Lymph # (Auto) 1700 (7460-9113) /uL [place] # (Auto) 500 (0-900) /uL Eos # (Auto) 100 (0-450) /uL Baso # (Auto) 100 (0-100) /uL PT 10.2 (9.4-12.5) SECONDS INR 0.9 (0.9-1.3) APTT 26 (25.1-36.5) SECONDS Sodium 136 L (137-145) mmol/L Potassium 4.1 (3.4-5.1) mmol/L Chloride 102 (98-107) mmol/L Carbon Dioxide 25 (22-32) mmol/L BUN 47 H (7-17) mg/dL Creatinine 1.26 H (0.52-1.04) mg/dL Estimated GFR 44 L (>60) mL/min BUN/Creatinine Ratio 37.3 H (6-22) Glucose 137 H (70-99) mg/dL POC Whole Bld Glucose 162 H (70-99) mg/dL Hemoglobin A1c 5.9 (4.0-6.0) % Calcium 9.3 (8.4-10.2) mg/dL Total Bilirubin 0.5 (0.2-1.3) mg/dL AST 36 (14-36) IU/L ALT 23 (<35) IU/L Alkaline Phosphatase 103 (38-126) U/L Total Creatine Kinase 43 (30-135) U/L Troponin I 0.018 (0.01-0.034) ng/mL Total Protein 8.3 H (6.3-8.2) g/dL Albumin 4.6 (3.5-5.0) g/dL Globulin 3.7 (1.7-4.1) g/dL Albumin/Globulin Ratio 1.2 (1.0-2.8) Triglycerides 146 (35-150) mg/dL Cholesterol 176 (140-199) mg/dL LDL Cholesterol, Calc 93 (<100) mg/dL HDL Cholesterol 54 (40-60) mg/dL Point of Care Testing Glucose POC [address] scan - head: Radiologist's Impression: [address] [address] [address] Scan Report Signed Patient: Lesly Delgado MR#: [id number] : 1945 Acct:[id number] Age/Sex: 79 / F Date of Service: 03/21/25 Loc: ED Accession Number: [id number] Procedure: CT Stroke Ordering Provider: Don Malloy MD PROCEDURE: CT STROKE INDICATIONS: Positive BE-FAST, Stroke symptoms TECHNIQUE: Noncontrast 4.5 mm thick angled axial sections acquired from the foramen magnum to the vertex, with coronal reformats. For radiation dose reduction, the following was used: automated exposure control, adjustment of mA and/or kV according to patient size. COMPARISON: [facility], MR, MR HEAD/BRAIN WO/W CON, 06/06/2022, 10:56. [facility], CT, CT ANGIO HEAD AND NECK, 03/21/2025, 15:42. FINDINGS: Image quality: Diagnostic. CSF spaces: Basal cisterns are patent. No extra-axial fluid collections. The ventricles are symmetric in size and shape. Brain: There is a very large midline inferior anterior frontal meningioma off of the falx. It does not arise off of the anterior skull base. It was present on previous MRI from 06/06/2022. At that time it measured 2.8 x 2.7 x 3.2 cm. It currently measures 2.7 x 3.1 x 3.5 cm. It is densely calcified without any vasogenic edema. There is cerebral volume loss, with resultant ventricular and sulcal prominence. There are periventricular and deep white matter chronic small vessel ischemic changes. There is intracranial internal carotid artery atherosclerosis. Skull and face: Calvarium and visualized facial bones appear intact, without suspicious lesions. Sinuses: Visualized sinuses and mastoids are clear. IMPRESSION: 1. No acute intracranial process. 2. Large incidental densely calcified frontal meningioma without vasogenic edema. Comment: Findings were discussed with Dr. Malloy on 03/21/2025 at 1605 hours This study fulfills neurological imaging criteria for inclusion or exclusion of acute stroke therapies based on available published neurological guidelines. Dictated by: Yared Moore M.D. on 03/21/2025 at 15:58 Approved by: Yared Moore M.D. on 03/21/2025 at 16:08 CTA - brain/neck: Radiologist's Impression: [address] [address] [address] Scan Report Signed Patient: Lesly Delgado MR#: [id number] : 1945 Acct:[id number] Age/Sex: 79 / F Date of Service: 03/21/25 Loc: ED Accession Number: [id number] Procedure: CT angio head and neck Ordering Provider: Don Malloy MD PROCEDURE: CT ANGIO HEAD AND NECK INDICATIONS: Right facial droop/confusion TECHNIQUE: After the administration of intravenous contrast, 1 mm thick sections acquired from the aortic arch through the [place]. 3-dimensional qkgnpkt-oinsqsjob-zgbndiyovw (MIP) and/or volume rendering reformats were acquired of the central intracranial vasculature and neck separately. For radiation dose reduction, the following was used: automated exposure control, adjustment of mA and/or kV according to patient size. COMPARISON: [facility], MR, MR HEAD/BRAIN WO/W CON, 06/06/2022, 10:56. [facility], CT, CT STROKE, 03/21/2025, 15:42. FINDINGS: Image quality: Diagnostic. Cerebral CT Angiogram: Internal carotid arteries: No acute findings. Intracranial ICA are patent with no significant stenosis. No occlusion. No aneurysm. Anterior cerebral arteries: Unremarkable. No significant stenosis. No occlusion. No aneurysm. Middle cerebral arteries: Unremarkable. No significant stenosis. No occlusion. No aneurysm. Posterior cerebral arteries: Unremarkable. No significant stenosis. No occlusion. No aneurysm. Basilar artery: Unremarkable. No significant stenosis. No occlusion. No aneurysm. Vertebral arteries: Unremarkable as visualized. Dural venous sinuses: Unremarkable given phase of enhancement. Other: Large densely calcified anterior frontal meningioma, basically unchanged in size compared to a previous MRI from 2022. No associated vasogenic edema. Neck CT Angiogram: Internal carotid arteries: Unremarkable. No significant stenosis. No dissection or occlusion. Common carotid arteries: Unremarkable. No significant stenosis. No dissection or occlusion. External carotid arteries: Unremarkable. No occlusion. Vertebral arteries: Unremarkable. No significant stenosis. No dissection or occlusion. Aortic Arch and Mediastinum: Partially visualized aortic arch unremarkable without evidence of aneurysm. Origins of the great vessels unremarkable. Other: Arterial phase soft tissues of the neck and chest are unremarkable. IMPRESSION: No significant intracranial arterial abnormality is seen. No significant abnormality is seen within the arteries of the neck. Large, known, densely calcified anterior frontal meningioma. Any quantitative measurements of stenosis were performed using NASCET criteria. Dictated by: Yared Moore M.D. on 03/21/2025 at 16:08 Approved by: Yared Moore M.D. on 03/21/2025 at 16:12 MDM Narrative Medical decision making narrative: Code stroke called at 3:40 p.m.. Patient last well known 2:30 p.m. today. Brought here by her son for sudden onset of confusion right lip droop. No headache no chest pain no back pain. No numbness tingling or weakness to the limbs. No prior history of stroke. Blood pressure noted here. NIH score of 1. Fast exam shows only right lip droop. Denies any recent illness. No chest pain no shortness of breath. No urinary complaints. MDM After history and exam, CT head CT angio head and neck normal saline EKG CBC CMP troponin Differential considered: Includes but not limited to TIA stroke Anna's palsy absence seizure hypoglycemia arrhythmia Medical records reviewed: No recent visit for this complaint Lab Test results independently reviewed as above. Pertinent findings: WBC 6.6 hemoglobin 12.7 sodium 136 potassium 4.1 INR 0.9 BUN 47 creatinine 1.26 GFR 44 glucose 137 troponin 0.018 Independently reviewed EKG normal EKG normal sinus rhythm rate 70 Imaging studies independently reviewed: CT head CT angiogram head and neck no acute finding Consultations: 4:17 p.m.. Spoke with [facility] stroke, Dr. Holley, NIH score 1. No TNK. Does not need tele stroke video at this time. Admit for about 2 workup MRI echocardiogram. Blood pressure reviewed and may need permissive hypertension for likely stroke. 4:39 p.m. but I spoke with Dr. Alves, hospitalist, who will admit patient 5:23 p.m.. [facility] neurologist, Dr. Holley called back and would like patient is started on Plavix 300 mg now. 324 mg aspirin now. I updated Dr. Alves, hospitalist. Re-evaluations: 4:31 p.m.. Spoke with patient and son. Will need admission for stroke workup. No reversal medications at this time as stroke score of 1 reviewed with tele stroke. They agree for admission. Discussion: Appropriate for admission for balance work for stroke. Tele stroke was contacted, no TNK. I have ordered echocardiogram and MRI of the brain. Blood pressure noted. May be permissive hypertension. No headache Diagnosis: Stroke Discharge Plan Departure Patient Disposition: Admitted as Observation Clinical Impression: Cerebrovascular accident Qualifiers: CVA mechanism: unspecified Qualified Code(s): I63.9 - Cerebral infarction, unspecified Admit Date/Time: 03/21/25 16:37 Admit Provider: Erlin Alves
[2025-03-21 15:55] LABS: Add Manual Diff / Slide Review NO; Hematocrit 37.2 % (36-46); Hemoglobin 12.7 g/dL (12.0-16.0); Lymphocytes Absolute Auto 1700 /uL (1100-4500); Mean Corpuscular HGB Conc 34.2 % (30-36); Mean Corpuscular Hemoglobin 31.0 PG (26-34); Mean Corpuscular Volume 90.5 fL (80-100); Platelet Count 205 X10^3/uL (150-400)
[2025-03-21 16:04] LABS: INR 0.9 (0.9-1.3); Prothrombin Time 10.2 SECONDS (9.4-12.5)
[2025-03-21 16:07] LABS: Alanine Aminotransferase 23 IU/L (<35); Albumin 4.6 g/dL (3.5-5.0); Albumin Globulin Ratio 1.2 (1.0-2.8); Alkaline Phosphatase 103 U/L (38-126); Blood Urea Nitrogen 47 mg/dL (7-17); Calcium 9.3 mg/dL (8.4-10.2); Carbon Dioxide 25 mmol/L (22-32); Chloride 102 mmol/L (98-107); Creatine Kinase 43 U/L (30-135); Estimated Glomerular Filt Rate 44 mL/min (>60); Globulin 3.7 g/dL (1.7-4.1); Glucose 137 mg/dL (70-99); HEMOLYSIS 55 (0-50); PTT Partial Thromboplastin Tim 26 SECONDS (25.1-36.5); Sodium 136 mmol/L (137-145); Total Protein 8.3 g/dL (6.3-8.2)
[2025-03-21 16:08] LABS: Potassium 4.1 mmol/L (3.4-5.1)
[2025-03-21] MEDS: SODIUM CHLORIDE 0.9% 250 ML 1000 ML IV (16:12)
[2025-03-21 16:19] LABS: Troponin I 0.018 ng/mL (0.01-0.034)
--- NOTE | 2025-03-21 16:29 | DI.MRI.S_ITS ---
PROCEDURE: MR HEAD/BRAIN WO CON INDICATIONS: Right facial droop TECHNIQUE: Non-contrast axial T1 spin echo, axial T2 fast spin echo, sagittal and axial FLAIR, coronal T2 fast spin echo, axial gradient echo, axial diffusion and ADC through the brain. COMPARISON: [facility], MR, MR HEAD/BRAIN WO/W CON, 06/06/2022, 10:56. [facility], CT, CT ANGIO HEAD AND NECK, 03/21/2025, 15:42. [facility], CT, CT STROKE, 03/21/2025, 15:42. FINDINGS: Image quality: Excellent. CSF spaces: Ventricles appear symmetric in size and shape. Basal cisterns are patent. No extra-axial fluid collections. Brain: Between the frontal lobes inferiorly, there is a T2 hypointense extra- axial lesion that measures 3.3 x 2.8 cm in greatest axial dimension, with a craniocaudal extent of 2.7 cm. No adjacent brain edema is seen. No intracranial bleeds. There is cerebral volume loss for age. There are periventricular and deep white matter chronic small vessel ischemic changes. Brainstem appears normal. Diffusion-weighted images show no acute infarct. No chronic ischemic insults. Normal intravascular flow voids are present. Skull and face: Calvarial bone marrow is normal in signal. Orbits are normal. Note is made of bilateral lens replacements. In this patient with this given history, scrutiny is given to the course of the right facial nerve, including within the right parotid gland. To the limits of this standard protocol study without contrast, no masses or abnormal signal can be seen within these regions. Sinuses: Sinuses and mastoids are clear. IMPRESSION: No imaging explanation is found for this patient's presenting symptoms. No findings of acute or subacute infarction can be seen. Calcified meningioma seen between the frontal lobes inferiorly, without significant change from the prior. Dictated by: Crispin Landa M.D. on 03/21/2025 at 17:41 Approved by: Crispin Landa M.D. on 03/21/2025 at 17:45
--- NOTE | 2025-03-21 16:29 | DI.ECHO.S_ITS ---
[facility]+ [facility] : : [id number] : [place] [address] : : [id number] : : Phone: [phone] Echocardiogram Report + + :Name: JUICE SOTO Study Date: 03/22/2025 Height: 60 in : :[facility] ReadingLocation: Weight: 172 lb : : Gender: Female BSA: 1.8 m2 : :: 1945 Age: 79 yrs BP: 156/64 mmHg: :Reason For Study: STROKE : :Ordering Physician: AYLEEN, : :WALKER Performed By: Timothy Morton : :Referring: WALKER ABBASI : + + Interpretation Summary The study quality was technically difficult. The ejection fraction is estimated to be 65-70%. Normal diastolic function. The right ventricle is not well visualized. No obvious valvular abnormalities but limited visualization. Pulmonary artery pressures cannot be estimated because of the lack of a measurable TR jet velocity. Procedure: A two-dimensional transthoracic echocardiogram with color flow and Doppler was performed. There is no prior echocardiogram noted for this patient. The study quality was technically difficult. The patient was in normal sinus rhythm during the exam. Left Ventricle: The left ventricle is normal in size. There is normal left ventricular wall thickness. There is no ventricular septal defect visualized. The ejection fraction is estimated to be 65-70%. There are no focal wall motion abnormalities. Normal diastolic function. Right Ventricle: The right ventricle is not well visualized. Atria: The left atrial size is normal. Right atrial size is normal. There is no Doppler evidence for an atrial septal defect. Mitral Valve: The mitral valve leaflets appear normal. There is no evidence of stenosis, fluttering, or prolapse. There is no mitral regurgitation noted. Aortic Valve: The aortic valve is trileaflet. The aortic valve is slightly calcified. The aortic valve opens well. There is no aortic valve stenosis. No aortic regurgitation is present. Tricuspid Valve: The tricuspid valve is not well visualized, but is grossly normal. No tricuspid regurgitation. Pulmonary artery pressures cannot be estimated because of the lack of a measurable TR jet velocity. Pulmonic Valve: The pulmonic valve is not well seen, but is grossly normal. There is no pulmonic valvular regurgitation. Great Vessels: The aortic root is normal size. The dimensions of the ascending aorta are normal. The pulmonary artery is normal size. The inferior vena cava was not visualized. Pericardium/ Pleura There is no pericardial effusion. There is no pleural effusion. MMode/2D Measurements & Calculations LVIDd: 3.9 cm LVOT diam: 2.0 cm LVIDs: 2.2 cm Ao root diam: 3.2 cm FS: 43.2 % asc Aorta Diam: 3.5 cm EPSS: 0.66 cm IVSd: 1.0 cm LVPWd: 0.83 cm LV carrizales. diameter/BSA (cm/m^2): 2.2 LV sys. diameter/BSA (cm/m^2): 1.3 LA A2 area: 17.1 cm2 RA long axis: 4.4 cm LA A4 area: 17.2 cm2 RA area: 13.5 cm2 LA length (vol): 5.8 cm RA vol: 35.4 ml LA vol: 42.6 ml RA : 20.2 ml/m2 LA vol index: 24.4 ml/m2 Doppler Measurements & Calculations Ao V2 max: 181.2 cm/sec LVOT Max Jason: 130.6 cm/sec Ao V2 mean: 116.7 cm/sec LV V1 max P.8 mmHg Ao max P.1 mmHg LV V1 VTI: 33.0 cm Ao mean P.3 mmHg NELLIE(I,D): 2.7 cm2 Ao V2 VTI: 36.4 cm NELLIE(V,D): 2.2 cm2 sev ratio: 0.91 NELLIE indexed to BSA (cm^2/m^2): 1.6 MV E max jason: 73.7 cm/sec PA V2 max: 127.5 cm/sec MV A max jason: 98.4 cm/sec PA V2 mean: 82.6 cm/sec MV E/A: 0.75 PA mean P.1 mmHg Med Peak E' Jason: 4.8 cm/sec PA pr(Accel): 67.0 mmHg E/E' med: 15.5 Lat Peak E' Jason: 6.6 cm/sec E/E' lat: 11.1 E/e' average: 13.3 MV dec time: 0.27 sec SV(LVOT): 99.5 ml Reading Physician:04:53 PM
--- NOTE | 2025-03-21 16:54 | PM.HP.1 ---
History of Present Illness History of Present Illness Date Patient Seen: 03/21/25 Time Patient Seen: 18:19 Chief complaint: was unresponsive for 6 mins Narrative: HPI: The patient was a 79-year-old female who was brought in his a code stroke at 3:40 p.m.. Her last known well was 2:30 p.m.. Her son brought in for acute episode of confusion, staring, and a facial droop on the right. Her symptoms lasted about 6 minutes. She was improved upon arrival. She was no history of TIA, or stroke. She was mildly hypertensive. She denies any weakness of arms or legs. ED course: Imaging included normal CTA H and CTA head and neck. Tele stroke was called, they recommended a dual antiplatelet load with 325 ASA and 300 of Plavix. High-dose statin is recommended. NIH score was 1, no lytics were advised. S: She mentioned some vertigo when getting to the [place] after her MRI. She denies any headache, visual changes, difficulty with speech or weakness of arms or legs. Her son shaina was visiting from [facility]. He was setting up the [place] when she began staring and not responding. He took a video where she would both eyes closed and possibly had a right facial droop. She did not really speak enough to know if there was aphasia. She can not describe whether or not she was trying to talk in the words would not come out. All symptoms have resolved. MR BRAIN: No imaging explanation is found for this patient's presenting symptoms. No findings of acute or subacute infarction can be seen. Calcified meningioma seen between the frontal lobes inferiorly, without significant change from the prior. ROS: All else reviewed and otherwise unremarkable except as noted in the history and physical. O: VSS, BP 156/68. NAD, alert and oriented, fluent speech, calm. Normocephalic skull, EOMI, anicteric sclera, symmetric pupils. Oropharynx unremarkable, no droop. Neck supple, midline trachea, no adenopathy. Lungs clear, normal rate and effort. Heart regular, no murmur gallop or rub. Abdomen is soft, non distended and non tender. Extremities are free of edema. Skin is free of rash or lesions. Joints are not swollen or deformed. Judgment appears to be normal. Neuro: Facial droop otherwise cranial nerves are intact and judgment appears normal. Motor strength is 5/5 all extremities. Speech is normal. ECG: Intervals [place] Rate: 70 P: 49 NJ: 180 QRS: 8 QRSD: 78 T: 45 QT: 424 QTc: 457 Interpretive Statements Normal sinus rhythm IMAGING: CTH: 1. No acute intracranial process. 2. Large incidental densely calcified frontal meningioma without vasogenic edema. CTA Head and neck: No significant intracranial arterial abnormality is seen. No significant abnormality is seen within the arteries of the neck. Large, known, densely calcified anterior frontal meningioma. MR BRAIN: No imaging explanation is found for this patient's presenting symptoms. No findings of acute or subacute infarction can be seen. Calcified meningioma seen between the frontal lobes inferiorly, without significant change from the prior. A/P: 1. TIA, resolved. 2. HTN, Active. 3. HLD, Active. 4. Breast cancer, status post lumpectomy and lymph node dissection in 2020. Treated with adjuvant chemotherapy and radiotherapy. She continues on anastrozole 1 mg daily. PLAN: -dual antiplatelet therapy for 21 days then monotherapy (ASA). -high-dose statin. -PT, and OT assessments. -serial neurologic examination. Anticipate at least 1 night in the hospital, supports observation status. Full resuscitation. [facility] Medical History Other low back pain Impaired fasting blood sugar History of COVID-19 (12/2022) Chronic knee pain Hyperlipidemia Bilateral knee pain Bilateral primary osteoarthritis of knee Neuropathy Arthritis Vertigo History of recurrent ear infection Essential hypertension Dyslipidemia Invasive ductal carcinoma of left breast Surgical History History of total right knee replacement (04/14/23) Hx of bilateral cataract extraction Hx of colonoscopy (09/30/21) Anesthesia History of lumpectomy of left breast (~06/2019) History of hysterectomy (~1985) Family History Father Tuberculosis Brother Stroke Brother Kidney disease Social History household members: none Smoking Status: Never smoker alcohol intake: current substance use type: does not use Meds Home Medications and Allergies Home Medications ?Medication ?Instructions ?Recorded ?Confirmed ?Type calcium carbonate (Calcium 600) 600 mg DAILY 12/31/20 02/26/25 History cholecalciferol (vitamin D3) 50 50 mcg PO DAILY 12/31/20 02/26/25 History mcg (2,000 unit) capsule (Vitamin D3) anastrozole 1 mg tablet 1 mg PO DAILY breast cancer #90 11/08/23 02/26/25 Rx tabs dorzolamide 22.3 mg-timolol 6.8 EYE-BOTH 11/08/23 02/26/25 History mg/mL eye drops Disabled Parking Permit See Rx Instructions .Route 02/21/24 02/26/25 Rx .COMPLEX #1 ea ibuprofen 800 mg tablet 800 mg PO Q8H PRN pain #90 tabs 11/04/24 02/26/25 Rx lisinopril 40 mg tablet 40 mg PO DAILY #100 tabs 01/14/25 02/26/25 Rx hydrochlorothiazide 12.5 mg tablet 12.5 mg PO DAILY #100 tabs 02/13/25 02/26/25 Rx atorvastatin 20 mg tablet 20 mg PO BEDTIME #100 tabs 03/12/25 Rx Allergies Allergy/AdvReac Type Severity Reaction Status Date / Time No Known Drug Allergies Allergy Verified 03/21/25 15:44 Exam Vital Signs (past 8 hours): - 03/21/25 15:25 03/21/25 15:32 03/21/25 15:32 Temperature 97.9 F Pulse Rate 66 67 Respiratory Rate 18 Blood Pressure 185/78 H 185/78 H Pulse Oximetry 100 100 Oxygen Delivery Method Room Air 03/21/25 16:00 03/21/25 16:23 03/21/25 16:24 Temperature Pulse Rate 68 72 Respiratory Rate Blood Pressure 174/84 H Pulse Oximetry 100 100 Oxygen Delivery Method 03/21/25 16:24 Temperature Pulse Rate 72 Respiratory Rate 23 Blood Pressure Pulse Oximetry 100 Oxygen Delivery Method Room Air Oxygen Delivery Method Room Air Objective Labs 03/21/25 15:44 03/21/25 15:44 Labs: Laboratory Results - last 24 hr 03/21/25 03/21/25 15:42 15:44 WBC 6.6 RBC 4.11 Hgb 12.7 Hct 37.2 MCV 90.5 MCH 31.0 MCHC 34.2 RDW 12.7 Plt Count 205 Neut % (Auto) 65.2 Lymph % (Auto) 25.9 [place] % (Auto) 6.9 Eos % (Auto) 1.2 L Baso % (Auto) 0.8 Neut # (Auto) 4300 Lymph # (Auto) 1700 [place] # (Auto) 500 Eos # (Auto) 100 Baso # (Auto) 100 PT 10.2 INR 0.9 APTT 26 Sodium 136 L Potassium 4.1 Chloride 102 Carbon Dioxide 25 BUN 47 H Creatinine 1.26 H Estimated GFR 44 L BUN/Creatinine Ratio 37.3 H Glucose 137 H POC Whole Bld Glucose 162 H Calcium 9.3 Total Bilirubin 0.5 AST 36 ALT 23 Alkaline Phosphatase 103 Total Creatine Kinase 43 Troponin I 0.018 Total Protein 8.3 H Albumin 4.6 Globulin 3.7 Albumin/Globulin Ratio 1.2 Assessment & Plan Time-Based Coding :: 35 min spent with patient and on the chart (including review of chart, obtaining history, exam, reviewing outside data, placing orders, documenting exam and treatment plan, and counseling patient) on 03/21. Quality MIPS - Admit I confirm the patient?s Advance Care Plan is present, Code status is documented, Surrogate decision maker is in patient?s record [If Yes, STOP here]: Yes MIPS - Meds 'Current medications' to include all prescriptions, [id number] products, herbals, cannabis/cannabidiol products, and vitamin/mineral/dietary (nutritional) supplements. I have utilized all available resources to obtain, update, or review the patient?s current medications. [If Yes, STOP here]: Yes
[2025-03-21 17:07] LABS: Appearance Urine UA CLEAR; Bilirubin Urine UA NEGATIVE (NEGATIVE); Color Urine UA YELLOW; Glucose Urine UA NEGATIVE (Negative); Ketones Urine UA NEGATIVE (NEGATIVE); Leukocyte Esterase Urine UA NEGATIVE (NEGATIVE); Nitrite Urine UA NEGATIVE (Negative); Occult Blood Urine UA TRACE-INTACT (Negative); Protein Urine UA NEGATIVE (Negative); Specific Gravity Urine UA <=1.005 (1.000-1.035); Urobilinogen Urine UA 0.2 E.U./dL (0.2)
[2025-03-21 17:09] LABS: pH Urine UA 5.5 (4.5-8.0)
[2025-03-21 17:12] LABS: Culture Indicated Urine Cult Not Indicated
[2025-03-21 17:13] LABS: Cholesterol 176 mg/dL (140-199); HDL Cholesterol 54 mg/dL (40-60); Triglycerides 146 mg/dL (35-150)
[2025-03-21 17:15] LABS: Hemoglobin A1C% w Est Avg Glu 5.9 % (4.0-6.0)
[2025-03-21] MEDS: ASPIRIN 81 MG CHEW TAB 324 MG PO (17:23)
[2025-03-21] MEDS: CLOPIDOGREL 75 MG TABLET PO (17:23)
[2025-03-21] MEDS: CLOPIDOGREL 75 MG TABLET 225 MG PO (18:58)
--- NOTE | 2025-03-21 20:08 | PC.NURSE ---
This Float RN spoke with patient about starting an IV in the Rt arm r/t past lumpectomy/resection to Lt in 2020. Patient refused, saying I already got IV fluids through the left side in the ED.
[2025-03-21] MEDS: ATORVASTATIN 20 MG TABLET 80 MG PO (21:36)
[2025-03-21] MEDS: HEPARIN 5,000 UNIT/ML VIAL 5000 UNIT SUBCUT (21:36)
[2025-03-22] VITALS: BP 115/43; PULSE 58; RESP 16; TEMP 36.7; O2SAT 100
[2025-03-22 04:00] VITALS: BP 110/43; PULSE 56; RESP 16; TEMP 36.9; O2SAT 100
[2025-03-22 08:00] VITALS: BP 156/64; PULSE 63; RESP 17; TEMP 35.8; O2SAT 100
[2025-03-22] MEDS: HEPARIN 5,000 UNIT/ML VIAL 5000 UNIT SUBCUT (09:02)
[2025-03-22] MEDS: CLOPIDOGREL 75 MG TABLET PO (09:02)
[2025-03-22] MEDS: ASPIRIN EC 81 MG TABLET PO (09:02)
--- NOTE | 2025-03-22 11:15 | PT-IP ANOTE ---
PT ordered. Imet with pt for initial eval; son is present, pt and son decline need for PT, state pt is at baseline and is awaiting discharge.
--- NOTE | 2025-03-22 13:42 | PC.NURSE ---
D/c instructions reviewed with pt, including new Rx. Discussed s/s of stroke. IV and tele removed. Pt exited via w/c with PCT to private vehicle.
== END 2025-03-22 13:42 | disposition home or self-care (01) ==
LOC: ED 16:32 → AC 16:39
PROVIDERS: Admitting Provider Hospitalist; Emergency Provider Emergency Medicine; PCP Registered Nurse Diabetes Educator; Referring Provider Emergency Medicine; Visit Provider Hospitalist
DX: R41.0 Disorientation, unspecified (principal); R29.701 NIHSS score 1; R29.810 Facial weakness; I10 Essential (primary) hypertension; E78.5 Hyperlipidemia, unspecified
CPT/HCPCS: 36415; 70450; 70496; 70498; 70551; 80053; 80061; 81001; 82550; 82962; 83036; 84484; 85025; 85610; 85730; 93005; 93306; 96372; 99285; G0378; J1644; J7050; Q9967

== ENCOUNTER → 2025-04-07 12:51 | Outpatient (CLI) | payer MEDICARE, SELFPAY ==
[2025-03-21 18:28] VITALS: BMI 33.5
[2025-04-07 14:24] LABS: Blood Urea Nitrogen 28 mg/dL (7-17); Calcium 9.3 mg/dL (8.4-10.2); Carbon Dioxide 24 mmol/L (22-32); Chloride 104 mmol/L (98-107); Estimated Glomerular Filt Rate > 60 mL/min (>60); Glucose 112 mg/dL (70-99); HEMOLYSIS < 15 (0-50); Potassium 4.2 mmol/L (3.4-5.1); Sodium 139 mmol/L (137-145)
== END ==
PROVIDERS: PCP Registered Nurse Diabetes Educator; Referring Provider Registered Nurse Diabetes Educator; Visit Provider Registered Nurse Diabetes Educator
DX: R94.4 Abnormal results of kidney function studies (principal)
CPT/HCPCS: 80048